=== PATIENT | female | born 1970 | race Caucasian/White ===

== ENCOUNTER 2023-12-15 06:57 | Outpatient (OUT) | payer SELFPAY ==
--- NOTE | 2023-12-15 | XR_ITS ---
The [address] [address] Patient Name: CARLOS CISNEROS MRN: [id number] date: 1970 Sex: F Assigned Patient Location: [facility] Current Patient Location: [facility] Accession/Order Number: [id number] Exam Date: 12/15/2023 07:10 Report Date: 12/17/2023 12:58 At the request of: DINO COLLAZO Procedure: XR knee RT 2V PROCEDURE: XR knee RT 2V HISTORY: Rt Knee Pain M25.561 COMPARISON: None. FINDINGS: BONES:Tiny periarticular degenerative osteophytes. No significant joint space narrowing or articular surface irregularity. No fracture, dislocation, or bone lesion. SOFT TISSUES:No visible soft tissue swelling. EFFUSION:None visible. OTHER: Negative. XR/XR knee RT 2V IMPRESSION: 1. No appreciable acute abnormality. 2. Minimal early degenerative changes. Electronically authenticated by: JORDAN ROCA Date: 12/17/2023 12:58
== END 2023-12-15 06:58 | disposition home or self-care (01) ==
LOC: RAD 07:02
PROVIDERS: PCP Family Medicine; Visit Provider Family Medicine
DX: M25.561 Pain in right knee (principal)
CPT/HCPCS: 73560

== ENCOUNTER 2025-05-11 07:49 | Outpatient (OUT) | payer BC, SELFPAY ==
--- OUTSIDE RECORDS SUMMARY | 2024-07-30 06:58 | XMS_ITS | Continuity of Care Document ---
Author Organization [facility] Address [address] [place] [id number] Phone Care Team Providers Care Computer Systems Designer Name Role Phone Sanya KILPATRICK, Jeimy Unavailable Unavailable Allergies, Adverse Reactions, Alerts Substance Reaction Status Criticality No Known Allergies Active No Inform ation Medications Medication Instructions Dosage Effective Dates (start - stop) Status Comments Multi Complete with Iron 18 mg-400 mcg tablet take 1 tablet by oral route every day with food 1.00 tablet - Active Procedures Procedure Date TB Read TB INTRADERMAL TEST PREVENTIVE NEW AGE 40-64 Bp scrn perf rec interval DIAST BP < 80 MM HG SYST BP < 130 MM HG TOBACCO NON-USER ROUTINE VENIPUNCTURE TB INTRADERMAL TEST ROUTINE VENIPUNCTURE Advance Directives Directive Yes / No Effective Date File Name No Information Encounters Encounter Description Practice Location Reason(s) For Visit Diagnoses Date Provider Providers Copied on Encounter [facility], [address] [place] [address], [id number] , [place] tel:+ [phone] [facility] No Information Sanya Munson. [address] [place] [address], [id number] , [place]. tel:[phone] [facility], [address] [place] [address], [id number] , tel:+ [phone] [facility] Encounter for screening colonoscopyScreening for cervical cancerEncounter for gynecological examination (general) (routine) without abnormal findingsEncounter for other screening for cancer of breast 4 Sanya Munson. [address], [place], [id number] , [place]. tel: [phone] [facility], [address] [place] [address], [id number] , [place] tel: [phone] [facility] No Information 4 Mansi Agustin. [address], [place], [id number] , [place]. tel: [phone] [facility], [address] [place] [address], [id number] , [place] tel: [phone] [facility] Encounter for screening for respiratory tuberculosis 4 Mansi Agustin. [address], [place], [id number] , [place]. tel: [phone] PREVENTIVE NEW AGE 40-64 [facility], [address] [place] [address], [id number] , [place] tel: [phone] [facility] pillar exam (chief complaint) Screening for metabolic disorderScreening for cardiovascular conditionAnnual physical examBody mass index [BMI] 27.0-27.9, adult 4 Sanya Munson. [address], [place], [id number] , [place]. tel: [phone] [facility], [address] [place] [address], [id number] , [place] tel: [phone] [facility] Pre-employ ment (chief complaint) Lab Draw (chief complaint) Encounter for antibody response examinationEncounter for screening for respiratory tuberculosis 3 Mansi Agustin. [address], [place], [id number] , [place]. tel: [phone] Family History Family Member Type Diagnosis Age At Onset No Information Immunizations Vaccine Date Status Comments influenza, injectable, quadr ivalent, preservative free administered Source: Other Regist ry COVID-19, mRNA, LNP-S, PF, 5 0 mcg/0.5 mL administered Source: Other Regist ry MMR administered Source: Other R egistry varicella administered Source: Other R egistry varicella administered Source: Other R egistry influenza, injectable, quadr ivalent, preservative free administered Source: Other Regist ry Tdap administered Source: Other R egistry MMR administered Source: Other R egistry COVID-19, mRNA, LNP-S, PF, 3 0 mcg/0.3 mL dose administered Source: Other Regist ry Hep A, adult administered Source: Other R egistry COVID-19, mRNA, LNP-S, PF, 3 0 mcg/0.3 mL dose administered Source: Other Regist ry Hep A, adult administered Source: Other R egistry influenza, seasonal, intrade rmal, preservative free administered Source: Other Regist ry Hep B, adult administered Source: Other R egistry Hep B, adult administered Source: Other R egistry Hep B, adult administered Source: Other R egistry Payers Payer name Insurance type Covered green party ID Authoriza tion(s) No Information Social History Type Description Quantity Date Captured Comments Alcohol Use Details Unknown Caffeine Use Details Unknown Tobacco Use Status No Information Smoking Status No Information Sex Female Sexual Orientation Straight or heterosexual Gender Identity Female Chief Complaint And Reason For Visit No Information Reason For Referral Reason For Referral No Information Plan Of Treatment Date Type Action Status Goal PRAPARE ASSESSMENT. Due on due Goal Lipid panel. Due on 029 due Goal Zoster vaccine (). Due on due Goal Tdap due Goal Mammogram. Due on 9 due Goal Depression screening. Due on due Goal Hepatitis C screening. Due o n due Goal Unhealthy drug use screening . Due on due Goal Tdap Vaccine. Due on 2030 due Goal HPV. Due on due Goal Influenza vaccine. Due on due Goal Colonoscopy. Due on due Goal Tdap due Goal PRAPARE ASSESSMENT. Due on due Goal HPV. Due on due Goal Unhealthy drug use screening . Due on due Goal Tdap Vaccine. Due on 2030 due Goal Mammogram. Due on due Goal Depression screening. Due on due Goal Lipid panel. Due on due Goal Zoster vaccine (). Due on due Goal Influenza vaccine. Due on due Goal Colonoscopy. Due on due Goal Hepatitis C screening. Due o n due Goal HPV. Due on due Goal Tdap Vaccine. Due on 2030 due Goal Mammogram. Due on due Goal Zoster vaccine (). Due on due Goal Lipid panel. Due on due Goal FIT. Due on due Goal CT-Colonography. Due on due Goal Unhealthy drug use screening . Due on due Goal Depression screening. Due on due Goal Tdap due Goal Colonoscopy. Due on due Goal Hepatitis C screening. Due o n due Goal FOBT. Due on due Goal FIT-DNA. Due on due Goal PRAPARE ASSESSMENT. Due on due Goal Influenza vaccine. Due on Ks due Goal HPV. Due on due Goal Hepatitis C screening. Due o n due Goal CT-Colonography. Due on due Goal PRAPARE ASSESSMENT. Due on due Goal Lipid panel. Due on due Goal Depression screening. Due on due Goal FIT. Due on due Goal Tdap Vaccine. Due on 2030 due Goal FOBT. Due on due Goal Tdap due Goal Influenza vaccine. Due on due Goal Mammogram. Due on due Goal Zoster vaccine (1st). Due on due Goal Colonoscopy. Due on due Goal FIT-DNA. Due on due Goal Unhealthy drug use screening . Due on due Goal HPV. Due on due Goal Colonoscopy. Due on due Goal CT-Colonography. Due on due Goal PRAPARE ASSESSMENT. Due on M due Goal Influenza vaccine. Due on Ma due Goal FIT-DNA. Due on due Goal Zoster vaccine (). Due on due Goal Mammogram. Due on due Goal Depression screening. Due on due Goal FIT. Due on due Goal Lipid panel. Due on due Goal Unhealthy drug use screening . Due on due Goal Hepatitis C screening. Due o n due Goal FOBT. Due on due Goal Tdap Vaccine. Due on 2030 due Goal Tdap due Goal Dietary management education , guidance, and counseling completed Goal Lipid panel. Due on due Goal PRAPARE ASSESSMENT. Due on O due Goal Colonoscopy. Due on due Goal HPV. Due on due Goal Hep A. Due on du e Goal FIT. Due on due Goal Tdap Vaccine. Due on 2022 due Goal FOBT. Due on due Goal Influenza vaccine. Due on Oc due Goal Unhealthy drug use screening . Due on due Goal Zoster vaccine (1st). Due on due Goal Mammogram. Due on 3 due Goal Tdap. Due on due Goal CT-Colonography. Due on due Goal Depression screening. Due on due Goal Hepatitis C screening. Due o n due Goal FIT-DNA. Due on due Referral Ordered: MAMMOGRAM, SCREENING [id number] Ordered: COLONOSCOPY AND BIOPSY ordered History Of Present Illness Encounter Date Complaint History Of Prese nt Illness pillar exam Patient here for pillars exam for [employer] health insurance. Labs obtained from left anticub after one attempt. PCP is Dr. Gomez. Just getting wellness done here. Nancy Ibarra.Patient states she is overall healthy. She sees a PCP yearly. She reports she takes daily multivitamins. Patient reports no major medical history. Vision: Last visit 2 years agoDentist: Reports regular visits 2x/yearMammogram: Last done 3 years agoPap: Done last yearColonoscopy: Done 2 years agoNon smoker and daily caffeine. 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 Denies any other concerns.//Vladimir MORENO. Lab Draw TB laboratory wo rk and Hepatitis B titer drawn successfully x1 attempt RAC. Patient tolerated well. 2x2 and bandage applied.//Vladimir MORENO. Functional Status Date Functional Assessmen t No Information Instructions Date Instruction Additional Infor bradford Recommend:annual phy sical exams, sooner with concerns or problems- annual vision exam- Wears glasses, recommend schedule annual exambiannual dental exams-UTDannual womens health exam, mammogram beginning age 40- UTDcolon cancer screening beginning age 50- UTD Related to Annual physical exam Dietary management e ducation, guidance, and counseling Related to Body mass index [BMI] 27.0-27.9, adult Giving encouragement to exercise Related to Body mass index [BMI] 27.0-27.9, adult Assessments Type Assessment Date No Information Patient Care Teams Name Effective Dates (start - stop) Status Members No Information
--- OUTSIDE RECORDS SUMMARY | 2025-05-08 04:15 | XMS_ITS ---
Author Organization The [facility] in [place] Address [address] [place] [address] Care Team Providers Care University Relations Recruiter Name Role Phone Jaren Gomez Primary Care Provider Allergies No Known Allergies REASON FOR VISIT Presents to office alone for yearly wellness, Has been having pain in tailbone for the past severalmonths. Denies any injuries Medications Medication SIG (Take, Route, Frequency, Duration) Notes Start Date End Date Status Diclofenac Sodium 75 MG 1 tablet as needed Orall y Twice a day 4Active Social History Tobacco Use: Social History Observation Description Date Details (start date - stop date) Never Smoker NA - NA Tobacco Control (Standard) Question Answer Notes Tobacco use: Nonsmoker AUDIT-C (Standard) Question Answer Notes Did you have a drink containing alcohol in the p ast year? Yes How often did you have six or more drinks on one occasion in the past year?Never (0 point)How many drinks did you have on a typical day when you were drinking in the past year?3 or 4 drinks (1 point)How often did you have a drink containing alcohol in the past year?2 to 4 times a month (2 points)[id number] Positive Problems Problem Type SNOMED Code ICD Code Onset Dates Problem Status W/U Status Risk Notes Problem Well adult (936030313) Well adult (Z00.00 ) Activeconfirmed Vital Signs Weight 136.8 lbs 05/08/2025 Height 65 in 05/08/2025 Blood pressure systolic 100 mm Hg 05/08/20 25 Blood pressure diastolic 58 mm Hg 025 BMI 22.76 kg/m2 05/08/2025 Encounters Encounter Location Date Provider Diagnosis [facility] [address] [address] 05/08/2025 Jaren Gomez Well adult Z00.0 0 Assessments Encounter Date Diagnosis (ICD Code) Assessment Notes Treatment Notes Treatment Clinical Notes Section Notes 05/08/2025 Well adult (ICD-10 - Z00.00) Plan Of Treatment Medication Medication Name Sig Start Date Stop Date Notes Diclofenac Sodium 75 MG 1 tablet as needed Orally Twic e a day 12/03/2023 Pending Test Test Name Order Date HEMOGLOBIN A1C (GLYCO) 05/08/2025 IRON, TOTAL 05/08/2025 LIPID PANEL (CHOL/TRIG/HDL/LDL) 05/08/20 25 XR LSPINE MIN 4 VIEWS 05/08/2025 THYROID PANEL (T4/TSH/FREE T3) 5 MM screening mammo BI 05/08/2025 XR sacrum coccyx min 2V 05/08/2025 CMP (COMP MET SEALS) w/eGFR CKD-EPI 2024 CBC WITH DIFF 05/08/2025 Progress Notes * Pat GOMEZOB:1970 ( 54 yo F)Acc No.[id number]:05/08/2025 UNLOCKED PROGRESS NOTE Progress Note Patient: Alicia FIELDS :?Rehan Curielcarolyn ([facility]), MDDOB:1970???Age: 54 Y???Sex:FemaleDate:05/08/2025Phone:[phone]:[address] [place], [id number] In:09:00 AM ESTCheck Out:09:37 AM EST Subjective: * Chief Complaints: * 1 . Presents to office alone for yearly wellness. 2. Has been having pain in tailbone for the past several months. Denies any injuries. * HPI: ???General:? no injury - just pain in tailbone doesnt hurt to push - more with sitting. * ROS: ???EENT:?hearing changes?denies.?visual changes?denies. non-healing mouth sores?denies.?swollen glands or neck lumps?denies.?hoarseness?denies.?sore throat?denies.?difficulty swallowing?denies.?nose bleeds?denies.?nasal congestion?denies.?ear ache?denies.?ear discharge denies.?ringing in ears?denies.?light sensitivity?denies.?eye pain?denies.?blurring?denies.?eye irritation?denies.?double vision?denies. vision loss?denies.?General/Constitutional:?Sweats:?Denies.?Fatigue?denies.?Sleep proble ms?denies.?Anorexia?denies.?Malaise?denies.?Weight loss?denies. Fatigue or Weakness?denies.?Fever or Chills?denies.?Cardiovascular:?Shortness of Breath w/lying flat?denies.?Lightheadedne ss/dizziness?denies.?Chest tightness/ heavy pressure?denies.?Swelling of legs, a nkles, or feet?denies.?Waking up with shortness of breath?denies.?Chest pain&#16 0;denies.?Palpitations?denies.?Weight gain?denies.?Respiratory:?Chronic or frequent cough?denies.?Coughing up blood&#1 60;denies.?Difficulty breathing?denies.?Productive cough?denies.?Snoring&#1 60;denies.?Shortness of breath that awakens from sleep (PND)?denies.?Chest pain? denies.?Sputum production?denies.?Wheezing?denies.?Musculoskeletal:?Joint pain?denies.?Joint Fluid?denies.?Backpain?denies.?Knee pain?denies.?Neck pain?denies.?Joint Stiffness?denies.?Muscle cramps?denies.?Weakness of muscles?denies.?Arthritis?denies.?Muscle aches?denies.?Pain in shoulder(s)?denies.?Swollen joints?denies.? * Medical History: C losed head injury, Panic attacks, Abnormal pap, Syncope. * Surgical History: r ight rotator cuff , colorectal screen 12/28/21 . * Family History: F ather: , diagnosed with Hypertension. M other: . B rother(s): alive, diagnosed with Hypertension. S ister(s): alive, goiter. 1 brother(s) , 1 sister(s) . 2 son(s) , 1 daughter(s) - healthy. . * Social History: ???Tobacco Use:?Tobacco Control (Standard)?Tobacco use:?Nonsmoker ???Drug/Alcohol:?AUDIT-C (Standard)?Did you have a drink containing alcohol in the past year??Yes ?How often did you have six or more drinks on one occasion in the past year??Never (0 point) ?How many drinks did you have on a typical daywhen you were drinking in the past year??3 or 4 drinks (1 point) ?How often did you have a drink containing alcohol in the past year??2 to 4 times a month (2 points) ?Points?3 ?Interpretation?Positive * Medications: T aking Diclofenac Sodium 75 MG Tablet Delayed Release 1 tablet as needed Orally Twice a day , Discontinued Azithromycin 250 MG Tablet 2 tabs today then 1 tab Orally daily , Discontinued predniSONE 20 MG Tablet 2 tablets Orally Once a day , Discontinued Tamiflu(Oseltamivir Phosphate) 75 MG Capsule 1 capsule Orally Twice a day , Medication List reviewed and reconciled with the patient * Allergies: N .K.D.A. Objective: * Vitals: W t:136.8lbs, Ht: 65 in, BP:100/58mm Hg, BMI:22.76Index, Ht-cm: 165.1 cm, Wt-k.05 kg. * Examination: ???Physical Exam: ?GENERAL:?well developed, well nourished, in no acute distress.?HEAD:?normocephalic/atraumatic.?EYES:?pupils equal, round and reactive to light, conjunctivae and sclerae normal.?EARS:?no deformity or lesion of external ear, canals and TM appear normal bilaterally, TM's intact, not inflamed with normal light reflex, hearing grossly normal to conversational speech.?NOSE:?no deformity, discharge, inflammation, or lesions. ?MOUTH:?mucous membranes moist, normal oropharynx and posterior pharynx without lesions or exudates, tongue normal, dentition normal.?NECK:?neck supple, no masses or palpable cervical nodes, trachea midline, thyroid without nodules, masses, tenderness, or enlargement.?CHEST:?no chest wall deformity, no chest wall tenderness. ?LUNGS:?normal respiratory effort and clear to auscultation, no wheezes, rales, or rhonchi, good air exchange.?CARDIO:?regular rate and rhythm, normal S1 and S2, nor murmur, rub, or gallop.?PULSES:?normal capillary refill.?ABDOMEN:?soft, non-distended, non-tender, no masses.?MUSCULOSKELETAL:?no deformity or scoliosis noted, normal range of motion, joints normal, no erythema, edema, effusion, or ecchymosis.?EXTREMITY:?no clubbing, cyanosis, edema, or deformity withnormal ROM in both upper and lower bilateral extremities.?NEUROLOGIC:?grossly normal.?SKIN:?no rashes, ulcerations, or suspicious lesions.?LYMPH NODES:?no cervical adenopathy, nodes normal.?MENTAL STATUS:?alert and oriented x3, normal mood and affect.? Assessment: * Assessment: 1.?Well adult - Z00.00 (Primary)??? Plan: * Treatment: Refill Diclofenac Sodium Tablet Delayed Release, 75 MG, 1 tablet as needed, Orally, Twice a day, 60, Refills 11.?LAB: HEMOGLOBIN A1C (GLYCO) ?LAB: IRON, TOTAL ?LAB: LIPID PANEL (CHOL/TRIG/HDL/LDL) ?LAB: THYROID PANEL (T4/TSH/FREE T3) ?LAB: CMP (COMP MET SEALS) w/eGFR CKD-EPI ?LAB: CBC WITH DIFF ?Imaging: XR LSPINE MIN 4 VIEWS ?Imaging: MM screening mammo BI ?Imaging: XR sacrum coccyx min 2V * * Electronic signature of Jaren Gomez MD, [id number] on 05/11/2025 at 07:55 AM EST Sign off status: PendingVisit Status:?CHK (Check Out) * Provider: Marquise Gomez ([facility])MD Date: 07/08/2024 Generated for Printing/Faxing/eTransmitting on:?05/11/2025 07:55 AM EST History and Physical Notes * HPI (History of Present Illness) CategorySub-CategoryDetailNotesCategory NotesGeneral no injury - just pain in tailbone doesnt hurt to push - more with sitting Examination CategorySub-CategoryDetailNotesCategory NotesPhysical ExamGENERAL:well developed, well nourished, in no acute distressHEAD:normocephalic/atraumatic EYES:pupils equal, round and reactive to light, conjunctivae and sclerae normal EARS:no deformity or lesion of external ear, canals and TM appear normal bilaterally, TM's intact, not inflamed with normal light reflex, hearing grossly normal to conversational speechNOSE:no deformity, discharge, inflammation, or lesionsMOUTH:mucous membranes moist, normal oropharynx and posterior pharynx without lesions or exudates, tonguenormal, dentition normalNECK:neck supple, no masses or palpable cervical nodes, trachea midline, thyroid without nodules, masses, tenderness, or enlargementCHEST:no chest wall deformity, no chest wall tendernessLUNGS:normal respiratory effort and clear to auscultation, no wheezes, rales, or rhonchi, good air exchangeCARDIO:regular rate and rhythm, normal S1 and S2, nor murmur, rub, or gallopPULSES:normal capillary refillABDOMEN:soft, non-distended, non-tender, no massesRECTAL:MUSCULOSKELETAL:no deformity or scoliosis noted, normal range of motion, joints normal, no erythema, edema, effusion, or ecchymosisEXTREMITY:no clubbing, cyanosis, edema, or deformity with normal ROM in both upper and lower bilateral extremitiesNEUROLOGIC:grossly normalSKIN:no rashes, ulcerations, or suspicious lesionsLYMPH NODES:no cervical adenopathy, nodes normalMENTAL STATUS:alert and oriented x3, normal mood and affect
--- OUTSIDE RECORDS SUMMARY | 2025-05-11 07:55 | XMS_ITS | CCD ---
Author Organization [facility] Care Team Providers Care Operations Lead Name Role Phone Dino Gomez Primary Care Provider [phone] DONTAE ESPAÑA Attending Unavailable DINO GOMEZ Primary Care Unavailable Lillian Contreras Unavailable VALE, DR SUN Primary Care Unavailable PASTOR KLINE Admitting Unavailable PASTOR KLINE Attending Unavailable LILLIAN GARCIA Consulting Unavailable MARK SWAN Consulting Unavailable PASTOR KLINE Consulting Unavailable NILL, DR FLORES Admitting Unavailable NILL, DR FLORES Attending Unavailable VALE, DR SUN Primary Care Unavailable NILL, DR FLORES Admitting Unavailable NILL, DR FLORES Attending Unavailable HOY, DR SUN Primary Care Unavailable NILL, DR FLORES Admitting Unavailable NILL, DR FLORES Attending Unavailable VALE, DR SUN Primary Care Unavailable NILL, DR FLORES Consulting Unavailable AGUBOSIM, RERE Consulting Unavailable HAIR, DOMINICK Consulting Unavailable VALE, DR SUN Admitting Unavailable VALE, DR SUN Attending Unavailable VALE, DR SUN Primary Care Unavailable VALE, DR SUN Consulting Unavailable ZIEBER, DR JORDAN [place] Consulting Unavailable VALE, DR SUN Admitting Unavailable VALE, DR SUN Attending Unavailable VALE, DR SUN Primary Care Unavailable VALE, DR SUN Consulting Unavailable NANCY JONES Admitting Unavailable NANCY JONES Attending Unavailable VALE, DR SUN Primary Care Unavailable NANCY JONES Consulting Unavailable MD Dino Gomez Primary Care Provider [phone] DO Holden Akins Attending Provider Holden Akins Attending Unavailable Holden Akins Admitting Unavailable Dino Gomez Primary Care Unavailable DEANN GUNN Attending Unavailable DEANN GUNN Referring Unavailable THALIA SALINAS Attending Unavailable Medications Current Medications MedicationDrug Class(es)DatesSig (Normalized)Sig (Original)Acetaminophen (5 sources)Tylenol ActiveBiotin (1 source)Start: 19-69-1474bgxn 1 capsule by mouth once dailybiotin Active 1 CAP PO Daily November 05, 2023 12:00amcephalexin 500 mg oral capsule (3 sources)Cephalosporin AntibacterialStart: 69-85-1923lpdf 1 capsule by mouth every eight hoursCephalexin 500 MG 1 capsule Orally every 8 hrs for 2 days May, ActiveCholecalciferol (1 source)Vitamin DStart: 65-83-4886kfcs 1 capsule by mouth once daily cholecalciferol (vitamin D3) Active 1 CAP PO Daily November 05, 2023 12:00am lidocaine 0.04 mg/mg medicated patch (1 source)Antiarrhythmic, Amide Local AnestheticStart: 89-96-4787htffquegx 4 % external patch 1 patch Completed/Discontinued Medications MedicationDrug Class(es)DatesSig (Normalized)Sig (Original)acetaminophen 325 mg / oxyCODONE hydrochloride 5 mg oral tablet (5 sources)Opioid AgonistStart: 16-67-1450ctrt 1 tablet by mouth every four hours as needed for painPercocet 5-325 MG 1 tablet as needed for pain Orally up to every 4 hrs for 5 days May, Not-Takingibuprofen 200 mg oral tablet (2 sources)Nonsteroidal Anti-inflammatory DrugStart: 04-25-2021 End: 43-80-1508tgix 1 tablet by mouth every four to six hoursIbuprofen (Advil) 200 mg Tablet Discontinued 200 MG PO EVERY 4-6 HOURS April 25, 2021 12:00am November 05, 2023 1:21pm instructed to stop 7 days before surgery; does not use with aleve.1 ml ketorolac tromethamine 15 mg/ml cartridge (2 sources)Nonsteroidal Anti-inflammatory Drug, Cyclooxygenase InhibitorStart: 11-22-2019 End: 83-06-9243hfcmsmxim (TORADOL) injection 15 mg1 ml LORazepam 2 mg/ml injection (1 source)BenzodiazepineStart: 11-22-2019 End: 00-91-5561WEHnadotu (ATIVAN) injection 0.5 mg1 ml morphine sulfate 10 mg/ml injection (1 source)Opioid AgonistStart: 11-22-2019 End: 96-74-9293nguabiym injection 6 mgnaproxen sodium 220 mg oral tablet (2 sources)Nonsteroidal Anti-inflammatory DrugStart: 04-25-2021 End: 97-38-1921Gcgdyrxd Sodium (Aleve) 220 mg Tablet Discontinued 220 MG PO Twice daily April 25, 2021 12:00amMa2023 1:21pm Instructed to stop 7 days prior to surgery. Does not take with ibuprofen.2 ml ondansetron 2 mg/ml injection (2 sources)Serotonin-3 Receptor AntagonistStart: 11-22-2019 End: 44-06-3961qitpmuuelow (ZOFRAN) injection 4 mg50 ml sodium chloride 9 mg/ml injection (1 source)Start: 11-22-2019 End: .9 % sodium chloride bolus Problems Active Problems Problem ClassificationProblemDateDocumented DateEpisodic/ChronicAnxiety disorders (1 source)Anxiety disorder, unspecified; Translations: [ANXIETY DISORDER UNSPECIFIED]Onset: 62-48-7248MijtnvfYjzv; stupor; and brain damage (1 source)Daytime somnolence; Translations: [Somnolence]01-39-8894Nlhinzha Epilepsy; convulsions (1 source)Epilepsy, unspecified, not intractable, without status epilepticus; Translations: [EPILEPSY UNS NOTINTRACT W/O SE]Onset: 77-19-8547IauasjlWgbal screening for suspected conditions (not mental disorders or infectious disease) (8 sources)Encounter for screening for malignant neoplasm of cervix; Translations: [Encounter for screening for malignant neoplasm of colon]Onset: 84-66-1216SelffjiqZisfvcjqvfkd (1 source)Encounter for immunization; Translations: [Encounter for immunization] Onset: 04-26-2023 Past or Other Problems Problem ClassificationProblemDateDocumented DateEpisodic/ChronicAbdominal pain (9 sources)Flank pain; Translations: [Epigastric pain]Onset: 88-59-9032Bibtxkoo Biliary tract disease (2 sources)Calculus of gallbladder without cholecystitis without obstruction; Translations: [CALCU GB W/O CHOLECYST W/O OBST]Onset: 07-37-5852UxrsdxyaCswnqs and vomiting (1 source)Nausea; Translations: [NAUSEA]Onset: 14-55-8165RgisdboxJtozu connective tissue disease (5 sources)Supraspinatus tear; Translations: [Unspecified rotator cuff tear or rupture of right shoulder, not specified as traumatic]EpisodicOther connective tissue disease (3 sources)Unspecified rotator cuff tear or rupture of right shoulder, not specified as traumatic; Translations: [Tear of right supraspinatus tendon M75.101]Onset: 04-28-2021 Resolved: 39-88-8151OcbdbxprBiypt non-traumatic joint disorders (1 source)Pain in right shoulder; Translations: [Acute pain of right shoulder M25.511]Onset: 04-28-2021 Resolved: 24-88-9330HorjbwuzHxajghwb codes; unclassified (3 sources)Other specified postprocedural statesOnset: 05-02-2021 Resolved: 84-03-3213YelhyhknLtlzmpk tract infections (4 sources)Urinary tract infection, site not specified; Translations: [UTI SITE NOT SPECIFIED]Onset: 38-06-1896Nwltinqi Results Test NameValueInterpretationReference RangeFacilityReminderson 11-03-2024 RemindersReminders From: Jeimy Russell MA To: N - Clinical; Sent: 11/03/2024 10:11:46 EDT Show up: 11/27/2026 10:11:00 EDT Subject: Colonoscopy recall 5 years Reminder/Recall Last colonoscopy: 12/28/2021 Repeat: 5 years Reason: Family hx of colonoscopy- Brother this is a change in hx since last colonoscopyNormalFisher [facility] - Chemistry and Chemistry - challengeon 86-90-1788Qmihhayrzwb [Mass/Vol]190 mg/dLRegency Hospital Cleveland WestCholesterol in HDL [Mass/Vol]56 mg/dLRegency Hospital Cleveland WestCholesterol in LDL [Mass/Vol] 113 mg/dLRegency Hospital Cleveland WestTriglyceride [Mass/Vol]120 mg/dL [facility] WestAlbumin [Mass/Vol]4.5 g/dLRegency Hospital Cleveland WestALP [Catalytic activity/Vol]92 U/[facility]ALT [Catalytic activity/Vol]22 U/[facility] HospitalAST [Catalytic activity/Vol]15 U/[facility] HospitalBilirubin [Mass/Vol]0.7 mg/dLRegency Hospital Cleveland WestCalcium [Mass/Vol]9.7 mg/dL [facility] WestChloride [Moles/Vol]102 mmol/[facility] HospitalCO2 [Moles/Vol]28 mmol/[facility] Creatinine [Mass/Vol]0.83 mg/dLRegency Hospital Cleveland WestGlucose [Mass/Vol]95 mg/dLRegency Hospital Cleveland WestPotassium [Moles/Vol]4.9 mmol/[facility] HospitalProtein [Mass/Vol]7.1 g/dLRegional Medical Centerodium [Moles/Vol]141 mmol/[facility] HospitalUrea nitrogen [Mass/Vol]13 mg/dLRegency Hospital Cleveland WestFree T4 [Mass/Vol]1.15 ng/dLRegency Hospital Cleveland WestLaboratory - Hematology and Cell countson 05-07-0183EnB0d (Bld) [Mass fraction]5.4 %[facility] Cleveland WestErythrocyte distribution width (RBC) [Ratio]18.7 %[facility] WestHematocrit (Bld) [Volume fraction]40.6 %[facility] WestHemoglobin (Bld) [Mass/Vol]12.0 g/dLRegency Hospital Cleveland WestMCH (RBC) [Entitic mass]17.7 pgFSalem Regional Medical Center MCHC (RBC) [Mass/Vol]29.6 g/dLRegency Hospital Cleveland WestMCV (RBC) [Entitic vol]60 fLRegency Hospital Cleveland WestPlatelets (Bld) [#/Vol]401 10*3/[facility] HospitalRBC (Bld) [#/Vol]6.79 10*6/[facility] HospitalWBC (Bld) [#/Vol]7.3 10*3/[facility] HospitalNo Panel Informationon 66-88-0391FTFJ Upxpyiwbrmd21 mg/dLRegency Hospital Cleveland WestEstimated GFR (Non- Zaszsbmk74 mL/minRegency Hospital Cleveland WestThyroid Stimulating Hormone 3rd Gen0.81[facility] WestPAP ACOG PANEL 2: 30 to 65on 07-01-2022..NormalThe [facility]tering Memorial Hospitalment on above:Result Comment: Performed at: WBPerformed By: #### [id number] #### [facility] [address] [address] [address] Brielle Beach Gdln ACOG Wksaaip63-07AlzgodAfnThe University of Toledo Medical CenterComment on above:Performed By: #### [id number] #### [facility] [address] [address] [address] Brielle HillDIAGNOSIS:CommentShelby Memorial Hospital on above: Result Comment: NEGATIVE FOR INTRAEPITHELIAL LESION OR MALIGNANCY. Performed at: WBPerformed By: #### [id number] #### [facility] [address] [place] [address] Dr. Brielle HillHPV AptimaNegativeNormalNegativeThe [facility] & [facility] HospitalComselect specialty hospital-[facility] on above:Result Comment: This nucleic acid amplification test detects fourteen high-risk HPV types (16,18,31,33,35,39,45,51,52,56,58,59,66,68) without differentiation. Performed at: =GPerformed By: #### [id number] #### [facility] [address] [place] [address] Dr. Brielle HillHPEugenia Genotype ReflexCommentShelby Memorial Hospital on above:Result Comment: Criteria not met, HPV Genotype not performed. Performed at: WBPerformed By: #### [id number] #### [facility] [address] [place] [address] Dr. Brielle HillMethodology:CommentShelby Memorial Hospital on above: Result Comment: This liquid based ThinPrep(R) pap test was screened with the use of an image guided system. Performed at: WBPerformed By: #### [id number] #### [facility] [address] [place] [address] Dr. Brielle HillNote:CommentShelby Memorial Hospital on above:Result Comment: The Pap smear is a screening test designed to aid in the detection of premalignant and malignant conditions of the uterine cervix. It is not a diagnostic procedure and should not be used as the sole means of detecting cervical cancer. Both false-positive and false-negative reports do occur. . Performed at: WBPerformed By: #### [id number] #### [facility] [address] [place] [address] Dr. Brielle HillPerformed by:CommentShelby Memorial Hospital on above: Result Comment: Marlee Harry, Concrete Curer (ASCP) Performed at: WBPerformed By: #### [id number] #### [facility] [address] [place] [address] Dr. Brielle HillSpecimen adequacy:[facility] on above:Result Comment: Satisfactory for evaluation. No endocervical component is identified. Performed at: WBPerformed By: #### [id number] #### [facility] [address] [place] [address] Dr. Brielle HillPREG HCG QUALon 28-76-2631PCPYOPBFG, QUALNegativeNormalNEGATIVE [facility] on above:Performed By: #### PREG #### [facility] [address] [place] [address] Dr. Brielle HillNM HEPATOBILIARY SCAN W EFon 63-26-8391XW HEPATOBILIARY SCAN W EF EXAMINATION: NM HEPATOBILIARY SCAN W EF HISTORY: Right upper quadrant pain COMPARISON: Ultrasound right upper quadrant 11/09/2021 TECHNIQUE: Radionuclide hepatobiliary imaging was performed after intravenous injection of 5.0 mCi Tc-99m BLANQUITA derivative with sequential acquisitions every 1 minute for one hour. Hepatobiliary imaging with gallbladder ejection fraction analysis was then performed with sequential imaging every 1 minute for 60 minutes following ingestion of 8 ounces Ensure Plus. FINDINGS: LIVER: Normal, prompt and uniform radiotracer uptake and clearing. BILIARY DUCTS: Normal radioisotopic biliary excretion. GALLBLADDER: Normal with no evidence of cystic duct obstruction. INTESTINE: Normal with no evidence of common biliary ductal obstruction. EJECTION FRACTION: 97 % within 60 minutes. (Normal EF > 38%). OTHER: Negative. IMPRESSION: 1. Normal nuclear medicine HIDA scan. Electronically authenticated by: JORDAN ROCA Date: 2021-11-16 13:43NormalThe Chickamauga HospitalCULTURE URINEon 98-93-2531OBVDIWZ URINECulture Observations: GREATER THAN TWO ORGANISMS PRESENT. PLEASE RESUBMIT CLEAN CATCH MID-STREAM URINE IF CLINICALLY INDICATED.NormalTrinity Health System West CampusComment on above:Performed By: #### URCX #### [facility] [address] [address] [address] Brielle Gimenez RANDOM W/MICROSCOPICon 45-66-7374PRVMIBOYPEOS SEENNormalNONE SEENTrinity Health System West CampusComment on above:Performed By: #### UAMIC #### [facility] [address] [place] [address] Dr. Brielle Ko Ql (U)SMALLAbnormalNEGATIVETrinity Health System West CampusComment on above:Performed By: #### UAMIC #### [facility] [address] [address] [address] Brielle Pisano SEENNormalNONE SEENTrinity Health System West CampusComselect specialty hospital-[place] on above:Performed By: #### UAMIC #### [facility] [address] [address] [address] Brielle Wise (U)CLEARNormalCLEARTrinity Health System West CampusComselect specialty hospital-[place] on above: Performed By: #### UAMIC #### [facility] [address] [address] [address] Brielle Leigh (U)YELLOWNormalYELLOWTrinity Health System West CampusComment on above: Performed By: #### UAMIC #### [facility] [address] [address] [address] Brielle Riveraystals LM Nom (Urine sed)NONE SEENNormalNONE SEENOhioHealth Nelsonville Health Center on above:Performed By: #### UAMIC #### [facility] [address] [place] [address] Dr. Hannah ChangEpithelial cells LM Ql (Urine sed)MODERATEAbnormalNONE SEEN /RARE The [facility] HospitalComselect specialty hospital-[place] on above:Performed By: #### UAMIC #### [facility] [address] [address] [address] Brielle HillGlucose Ql (U)NegativeNormalNEGATIVETrinity Health System West CampusComment on above:Performed By: #### UAMIC #### [facility] [address] [address] [address] Brielle HillHemoglobin Ql (U)NegativeNormalNEGATIVESelect Medical [facility]ty [facility] on above:Performed By: #### UAMIC #### [facility] [address] [place] [address] Dr. Brielle HillKetones Ql (U)NegativeNormalNEGATIVETrinity Health System West CampusComment on above:Performed By: #### UAMIC #### [facility] [address] [place] [address] Dr. Brielle HillLEUKOCYTESNegativeNormalNEGATIVETrinity Health System West CampusComment on above:Performed By: #### UAMIC #### [facility] [address] [place] [address] Dr. Brielle DuongCOUSTRACEAbnormalNONE SEENTrinity Health System West CampusComment on above:Performed By: #### UAMIC #### [facility] [address] [place] [address] Dr. Brielle HillNitrite Ql (U)NegativeNormalNEGATIVETrinity Health System West CampusComment on above:Performed By: #### UAMIC #### [facility] [address] [place] [address] Dr. Brielle HillpH (U)8.5 [pH]Normal5-9The [facility] Brent[facility] HospitalComment on above: Performed By: #### UAMIC #### [facility] [address] [address] [address] Brielle HillRBCNONE SEENAbnormal0-2The [facility] HospitalComment on above: Performed By: #### UAMIC #### [facility] [address] [place] [address] Dr. Brielle HillSPEC GRAVITY1.475Yctbvl8.005-<=1.025The [facility] HospitalComment on above:Performed By: #### UAMIC #### [facility] [address] [place] [address] Dr. Brielle Gimenez PROTEINNegativeNormalNEGATIVE/ TRACETrinity Health System West Campus Comment on above:Performed By: #### UAMIC #### [facility] [address] [place] [address] Dr. Brielle Mejiabilharshil Qn (U)8 {Mica'U}/dLAbnormal0.2 - 1.0The [facility] HospitalComment on above:Performed By: #### UAMIC #### [facility] [address] [place] [address] Dr. Brielle HillWBCNONLetha SEENNormalNONE SEENTrinity Health System West CampusComment on above: Performed By: #### UAMIC #### [facility] [address] [place] [address] Dr. Brielle HillAMYLASEon 82-32-7185Jrcnwwt [Catalytic activity/Vol]46 U/LNormal 25-115The [facility] HospitalComment on above:Performed By: #### CBC #### [facility] [address] [place] [address] Dr. Brielle Sahu AUTO DIFFon 49-02-2793UFRO #0.0 103/ulNormal0.0-0.1Tr[facility] Health System West CampusComment on above:Performed By: #### CBC #### [facility] [address] [place] [address] Dr. Brielle HillBasophils/100 WBC (Bld)0.2 %Normal0.2-2.0[facility] Comment on above:Performed By: #### CBC #### [facility] [address] [place] [address] Dr. Brielle Suarez #0.1 103/ulNormal0.0-0.7The [facility] on above: Performed By: #### CBC #### [facility] [address] [place] [address] Dr. Brielle Crossosinophils/100 WBC (Bld)1.2 %Normal0.9-7.0[facility] Comment on above:Performed By: #### CBC #### [facility] [address] [place] [address] Dr. Brielle Crossrythrocyte distribution width (RBC) [Ratio]17.6 %Critically high 11.0-15.0The [facility] HospitalComment on above:Performed By: #### CBC #### [facility] [address] [place] [address] Dr. Brielle HillHematocrit (Bld) [Volume fraction]36.1 %Hcknss78.0-48.0The [facility] HospitalComment on above:Performed By: #### CBC #### [facility] [address] [place] [address] Dr. Brielle HillHemoglobin (Bld) [Mass/Vol]10.7 g/dLCritically low12.0-16.0The [facility] HospitalComment on above:Performed By: #### CBC #### [facility] [address] [place] [address] Dr. Brielle Tran #0.03 10e3/ulNormal0.00-0.03The [facility] HospitalComment on above:Performed By: #### CBC #### [facility] [address] [place] [address] Dr. Brielle Tran %0.3 %Normal0.0-0.5The [facility] HospitalComment on above: Performed By: #### CBC #### [facility] [address] [place] [address] Dr. Brielle StephensonH #4.3 103/ulCritically high1.2-3.8The [facility] Comment on above:Performed By: #### CBC #### [facility] [address] [place] [address] Dr. Brielle Chapmanmphocytes/100 WBC (Bld)38.6 %Hipgak68.5-60.0The [facility] HospitalComment on above:Performed By: #### CBC #### [facility] [address] [place] [address] DrReba Teresa DIFF REQNONormalThe [facility] HospitalComment on above: Performed By: #### CBC #### [facility] [address] [place] [address] Dr. Brielle Benz (RBC) [Entitic mass]18.4 pgCritically low26.7-34.0The [facility] HospitalComment on above:Performed By: #### CBC #### [facility] [address] [place] [address] Dr. Brielle Benz (RBC) [Mass/Vol]29.6 g/dLCritically low29.9-35.2The [facility] HospitalComment on above:Performed By: #### CBC #### [facility] [address] [place] [address] Dr. Brielle Benz (RBC) [Entitic vol]62.0 fLCritically low81.0-99.0The [facility] HospitalComment on above:Performed By: #### CBC #### [facility] [address] [place] [address] Dr. Brielle Hickman #0.7 103/ulNormal0.3-0.8The [facility] HospitalComment on above:Performed By: #### CBC #### [facility] [address] [place] [address] Dr. Brielle Boschocytes/100 WBC (Bld)6.0 %Normal1.7-12.0The [facility] Comment on above:Performed By: #### CBC #### [facility] [address] [place] [address] Dr. Brielle Solitario #5.9 103/ulNormal1.4-6.5The [facility] HospitalComment on above:Performed By: #### CBC #### [facility] [address] [place] [address] Dr. Brielle Gordonutrophils/100 WBC (Bld)53.7 %Chxoxi40.0-75.0The [facility] HospitalComment on above:Performed By: #### CBC #### [facility] [address] [place] [address] Dr. Yilan ChangPlatelet mean volume (Bld) [Entitic vol]9.5 fLNormal9.5-13.5The [facility] HospitalComment on above:Performed By: #### CBC #### [facility] [address] [place] [address] Dr. Brielle HillPLT341 103/ubHrxzib116-729Fuh [facility] HospitalComment on above: Performed By: #### CBC #### [facility] [address] [place] [address] Dr. Brielle HillRBC5.82 106/ulCritically high4.20-5.40The [facility] Comment on above:Performed By: #### CBC #### [facility] [address] [place] [address] Dr. Brielle HillWBC11.0 103/ulNormal4.0-11.0The [facility] HospitalComment on above:Performed By: #### CBC #### [facility] [address] [place] [address] Dr. Brielle HillLIPASEon 94-47-0633Ihnnkn [Catalytic activity/Vol]72.0 U/L Critically low73.0-393.0The [facility] HospitalComment on above:Performed By: #### CBC #### [facility] [address] [place] [address] Dr. Brielle HillPROF 14(COMP METB)on [id number] [Mass/Vol]3.8 g/dLNormal 3.4-5.0The [facility] Brentwood HospitalComment on above:Performed By: #### LIPA, CMP, CRISTIN, HSTROPN #### [facility] [address] [place] [address] Dr. Brielle HillAlbumin/Globulin [Mass ratio]1.2 {ratio}NormalThe [facility]tering [facility] Hospitalment on above:Performed By: #### LIPA, CMP, CRISTIN, HSTROPN #### [facility] [address] [place] [address] Dr. Brielle HillALP [Catalytic activity/Vol]82 U/CRpvfok00-047Vaf Alyce HospitalComment on above:Performed By: #### LIPA, CMP, CRISTIN, HSTROPN #### [facility] [address] [address] [address] Brielle Ferreira [Catalytic activity/Vol]30 U/JCzzyvs11-13Xzw [facility] HospitalComment on above:Performed By: #### LIPA, CMP, CRISTIN, HSTROPN #### [facility] [address] [place] [address] Dr. Brielle Garciaon gap [Moles/Vol]11.9 mmol/LNormalThe [facility] Comment on above:Performed By: #### LIPA, CMP, CRISTIN, HSTROPN #### [facility] [address] [place] [address] Dr. Brielle HillAST [Catalytic activity/Vol]42 U/LCritically qxlz23-71Zft [facility] HospitalComment on above:Performed By: #### LIPA, CMP, CRISTIN, HSTROPN #### [facility] [address] [place] [address] Dr. Brielle HillBilirubin [Mass/Vol]1.2 mg/dLCritically high0.2-1.0The [facility] HospitalComselect specialty hospital-[facility] on above:Performed By: #### LIPA, CMP, CRISTIN, HSTROPN #### [facility] [address] [place] [address] Dr. Brielle HillCalcium [Mass/Vol]8.4 mg/dLCritically low8.5-10.1The [facility] HospitalComselect specialty [facility] on above:Performed By: #### LIPA, CMP, CRISTIN, HSTROPN #### [facility] [address] [place] [address] Dr. Brielle HillChloride [Moles/Vol]104 mmol/DIbiaks21-576Trr [facility] Comment on above:Performed By: #### LIPA, CMP, CRISTIN, HSTROPN #### [facility] [address] [place] [address] Dr. Brielle HillCO2 [Moles/Vol]24.8 mmol/EIkttff37.0-32.0[facility] Comment on above:Performed By: #### LIPA, CMP, CRISTIN, HSTROPN #### [facility] [address] [address] [address] Brielle HillCreatinine [Mass/Vol]0.81 mg/dLNormal0.55-1.02[facility] West CampusComment on above:Performed By: #### LIPA, CMP, CRISTIN, HSTROPN #### [facility] [address] [address] [address] Brielle CrossGFR-AF PORTUGUESE>60Normal>=60The [facility] HospitalComment on above:Performed By: #### LIPA, CMP, CRISTIN, HSTROPN #### [facility] [address] [place] [address] Dr. Brielle CrossGFR-NON AF PORTUGUESE>60Normal>=60The [facility] HospitalComment on above:Performed By: #### LIPA, CMP, CRISTIN, HSTROPN #### [facility] [address] [place] [address] Dr. Brielle HillGlobulin (S) [Mass/Vol]3.1 g/dLNormalThe [facility] HospitalComment on above:Performed By: #### LIPA, CMP, CRISTIN, HSTROPN #### [facility] [address] [place] [address] Dr. Brielle HillGlucose [Mass/Vol]100 mg/gZEdzkva25-186MgxTrinity Health System West Campus Comment on above:Performed By: #### LIPA, CMP, CRISTIN, HSTROPN #### [facility] [address] [place] [address] Dr. Brielle HillPotassium [Moles/Vol]3.7 mmol/LNormal3.5-5.1[facility] Comment on above:Performed By: #### LIPA, CMP, CRISTIN, HSTROPN #### [facility] [address] [place] [address] Dr. Brielle HillProtein [Mass/Vol]6.9 g/dLNormal6.4-8.2[facility] Comment on above:Performed By: #### LIPA, CMP, CRISTIN, HSTROPN #### [facility] [address] [address] [address] Brielle HillSodium [Moles/Vol]137 mmol/ZWpiomw855-344Vfa [facility] Comment on above:Performed By: #### LIPA, CMP, CRISTIN, HSTROPN #### [facility] [address] [address] [address] Brielle HillUrea nitrogen [Mass/Vol]9.0 mg/dLNormal7.0-18.0The [facility] HospitalComment on above:Performed By: #### LIPA, CMP, CRISTIN, HSTROPN #### [facility] [address] [place] [address] Dr. Brielle Lynn nitrogen/Creatinine [Mass ratio]11.1 mg/mgNormalThe [facility] HospitalComment on above:Performed By: #### LIPA, CMP, CRISTIN, HSTROPN #### [facility] [address] [place] [address] Dr. Brielle Jackson, HIGH SENSITIVITYon [id number]<4.5Wpogzf0.0-51.3 [facility] on above:Result Comment: CUT-OFF POINTS HAVE BEEN ESTABLISHED BASED ON THE FOURTH UNIVERSAL DEFINITIONS OF MYOCARDIAL INFARCTION. THE UPPER REFERENCE LIMIT (URL) OF TROPONIN, DEFINED THE 99TH PERCENTILE OF cTnI DISTRIBUTION IN A REFERENCE POPULATION, HAS BEEN CONFIRMED THE DECISION THRESHOLD FOR ME DIAGNOSIS.Performed By: #### HSTROPN #### [facility] [address] [place] [address] Dr. Brielle HillHSTROP<4.9Howkjp3.0-51.3The [facility] on above: Result Comment: CUT-OFF POINTS HAVE BEEN ESTABLISHED BASED ON THE FOURTH UNIVERSAL DEFINITIONS OF MYOCARDIAL INFARCTION. THE UPPER REFERENCE LIMIT (URL) OF TROPONIN, DEFINED THE 99TH PERCENTILE OF cTnI DISTRIBUTION IN A REFERENCE POPULATION, HAS BEEN CONFIRMED THE DECISION THRESHOLD FOR ME DIAGNOSIS.Performed By: #### CBC #### [facility] [address] [place], [place] [id number] Dr. Brielle De Los Santos SINGLE QUAD RT UPPERon [id number] SINGLE QUAD RT UPPEREXAM: Right upper quadrant ultrasound: HISTORY: Nausea and vomiting with epigastric pain for a day. COMPARISON: None. TECHNIQUE: Grayscale and color flow analysis was performed. FINDINGS: The liver is normal in size and appearance. Normal blood flow characteristics are seen in the portal vessels. The visualized pancreas is normal in appearance. The gallbladder is normally distended and shows layering echogenic stones in the fundus. The common bile duct measures 3.3 mm. By report, there is a negative sonographic Chambers's sign. The right kidney is normal in size and appearance. There is no hydronephrosis. No free fluid is seen. IMPRESSION: Cholelithiasis without other convincing evidence of acute cholecystitis. Electronically authenticated by: MARK SWAN Date: 2021-11-09 15:26[facility] CenterXR ABD FLAT UP_PA Bill [id number] ABD FLAT UP_PA CHEXAM: XR ABD FLAT UP_PA CH HISTORY: NAUSEA WITH VOMITING, UNSPECIFIED COMPARISON: None. TECHNIQUE: Single view of the chest and 2 views of the abdomen. FINDINGS: Cardiomediastinal silhouette and pulmonary vascularity are within normal limits. The lungs and the costophrenic angles are clear. Moderate stool burden throughout the colon. No evidence of significant bowel dilatation. No evidence of free intraperitoneal gas. There are a few scattered nonspecific air-fluid levels present. IMPRESSION: 1. Moderate stool burden within the colon. No definite evidence of bowel obstruction or significant ileus. There are a few scattered air-fluid levels which are nonspecific. 2. No acute cardiopulmonary disease. Electronically authenticated by: LILLIAN GARCIA Date: 2021-11-09 12:46[facility] CenterCT ABDOMEN PELVIS WO CONTRASTon [id number] ABDOMEN PELVIS WO CONTRASTEXAMINATION: CT OF THE ABDOMEN AND PELVIS WITHOUT CONTRAST 11/22/2019 10:55 am TECHNIQUE: CT of the abdomen and pelvis was performed without the administration of intravenous contrast. Multiplanar reformatted images are provided for review. Dose modulation, iterative reconstruction, and/or weight based adjustment of the mA/kV was utilized to reduce the radiation dose to as low as reasonably achievable. COMPARISON: None. HISTORY: ORDERING SYSTEM PROVIDED HISTORY: flank pain TECHNOLOGIST PROVIDED HISTORY: flank pain Is the patient ?->No Right renal colic. FINDINGS: Lower Chest: The visualized portions of the lung bases are clear. Organs: Solid organs are limited without contrast. Mild steatosis of the liver. Layering gallstones. No pericholecystic fluid. The biliary tree is not dilated. Borderline splenomegaly. Normal pancreas. No adrenal lesions. Asymmetric edema of the right kidney compared with the left. No radiopaque calculi. The right ureter is not dilated. The left ureter is not dilated. GI/Bowel: Normal appendix. Small volume of stool throughout the colon. No dilated loops of small bowel. Pelvis: The uterus and adnexa are unremarkable. The bladder is underdistended. Bladder wall thickening presumably from underdistention. Cystitis or reactive change from recently passed calculus are considered. Peritoneum/Retroperitoneum: No enlarged lymph nodes by size criteria. Calcified plaquing of the aorta. Prominence of the intima of the aorta implies underlying anemia. Bones/Soft Tissues: Umbilical piercing. No focal soft tissue swelling. No evidence of fracture. Age compatible degenerative change. Disc bulges at L4-L5 and L5-S1. IMPRESSION: Minimal edema adjacent to the right kidney in absence of a radiopaque calculus. Findings imply recently passed calculus. Bladder wall thickening presumably from underdistention. Reactive changes from recently passed calculus also considered. Please correlate with urinalysis. Interpreted by: Edvin Kaur MD Signed by: Edvin Kaur MD 11/23/19 Final resultNoTrinity Health System Twin City Medical CenterCult,Urineon [id number],UrineSpecimen Description .CLEAN CATCH URINE Special Requests NOT REPORTED Culture NO SIGNIFICANT GROWTH Report Status FINAL 11/23/2019[facility]ron CampusComment on above: Performed By: #### URC #### [facility] Coco [address] [place] [address] Insole Presser: Rajan Bermudez MD [facility] [address] [place] [address] Insole Presser: Shyam Max MDBasic Metab w/rfx MGon 11-22-2019(cont.)Normal [facility] SystemComment on above:Result Comment: Average GFR for 50-59 years old: 93 mL/min/1.73sq m Chronic Kidney Disease: <60 mL/min/1.73sq m Kidney failure: <15 mL/min/1.73sq m eGFR calculated using average adult body mass. Additional eGFR calculator available at: http://www.Shhmooze/multiple_crcl_2012.htmPerformed By: #### HCG, BMPX, CDP #### [address] [place], [place] [id number] Insole Presser: Shyam Max MDAnion gap [Moles/Vol]12 mmol/LNormal9-17[facility] Health SystemComment on above:Performed By: #### HCG, BMPX, CDP #### [address] [place], [place] [id number] Insole Presser: MONROE LeiN/CRE Ovqbo52Mtzpvf0-72[facility] Comment on above:Performed By: #### HCG, BMPX, CDP #### [address] [place], [place] [address] Insole Presser: Shyam Max MDCalcium [Mass/Vol]8.9 mg/dLNormal8.6-10.4[facility] Health SystemComment on above:Performed By: #### HCG, BMPX, CDP #### [address] [place] [address] Insole Presser: ERIC Leihloride [Moles/Vol]100 mmol/VYozlqe56-756WfhdpHolzer Health SystemComment on above:Performed By: #### HCG, BMPX, CDP #### [address] [place], [place] [id number] Insole Presser: Shyam Max MDCO2 [Moles/Vol]25 mmol/MQygbat40-92Owtey [facility]iffin HospitalComment on above:Performed By: #### HCG, BMPX, CDP #### [address] [place] [address] Insole Presser: ERIC Leireatinine [Mass/Vol]0.66 mg/dLNormal0.50-0.90 [facility] HospitalComment on above:Performed By: #### HCG, BMPX, CDP #### [address] [place] [address] Insole Presser: Shyam Max MDGFR, Amer>60Normal>60MerDo[facility] Comment on above:Performed By: #### HCG, BMPX, CDP #### [address] [place] [id number] Insole Presser: Shyam Max MDGFR,non Amer>60Normal>60[facility] HospitalComment on above:Performed By: #### HCG, BMPX, CDP #### [address] [place], [facility]83 Insole Presser: Shyam Max MDGlucose [Mass/Vol]140 mg/yDInjr01-50Uqdfe [place] HospitalComment on above:Performed By: #### HCG, BMPX, CDP #### [address] [place], [facility]83 Insole Presser: JODY Leiotassium [Moles/Vol]4.1 mmol/LNormal3.7-5.3[facility] hospitaly Ama HospitalComment on above:Performed By: #### HCG, BMPX, CDP #### [address] [place] [address] Insole Presser: ARTURO Leiodium [Moles/Vol]137 mmol/OWfciis873-136Sdsnv [facility]iffin HospitalComment on above:Performed By: #### HCG, BMPX, CDP #### [address] [place], [place] [address] Insole Presser: ARTURO Leitaging:NormalMercy Ama HospitalComment on above:Result Comment: Stage 1: Some kidney damage normal GFR Stage 2: Mild kidney damage GFR 60-89 Stage 3: Moderate kidney damage GFR 30-59 Stage 4: Severe kidney damage GFR 15-29 Stage 5: Severe kidney damage GFR <15 ESRD - chronic treatment by dialysis or transplantPerformed By: #### HCG, BMPX, CDP #### [facility] [address] [place] [address] Insole Presser: Shyam Max MDUrea nitrogen [Mass/Vol]11 mg/dLNormal6-20[facility] Health SystemComment on above:Performed By: #### HCG, BMPX, CDP #### [facility] [address] [place] [address] Insole Presser: Shyam Max MDSt. Vincent'S [facility] Metabolic Panel w/ Reflex to MGon [id number] gap [Moles/Vol]12 mmol/L9 - 17 mmol/LMDiley Ridge Medical Center, KYBun/Cre Zerrf35HlcibMartins Ferry Hospital, KYCalcium [Mass/Vol]8.9 mg/dL8.6 - 10.4 mg/dLMartins Ferry Hospital, KYChloride [Moles/Vol]100 mmol/L98 - 107 mmol/[facility], [place] CO2 [Moles/Vol]25 mmol/L20 - 31 mmol/[facility] [place], KYCreatinine [Mass/Vol] 0.66 mg/dL0.5 - 0.9 mg/dLMartins Ferry Hospital, KYGFR >60>60 mL/min [facility], KYGFR Non->60>60 mL/minMartins Ferry Hospital, [place] Glucose [Mass/Vol]140 mg/mXNjoq78 - 99 mg/dLMartins Ferry Hospital, KYInterpretation and review of laboratory resultsAbnormalMartins Ferry Hospital, KYPotassium [Moles/Vol]4.1 mmol/L3.7 - 5.3 mmol/LMSumma Health Wadsworth [facility]- [place], KYSodium [Moles/Vol]137 mmol/L135 - 144 mmol/[facility]- [place], KYUrea nitrogen [Mass/Vol]11 mg/dL6 - 20 mg/dLMetrohealth Parma [facility] Center- [place], PACBC Auto Differentialon [id number] (Bld) [#/Vol]0.00 10*3/uLMetrohealth Parma Medical Center- [place], KYBasophils/100 WBC (Bld)0 %0 - 2 %[facility], KYDifferential TypeNOT REPORTEDMetrohealth [facility]- [place], KYEosinophils (Bld) [#/Vol]0.18 10*3/[facility]- [place], KYEosinophils/100 WBC (Bld)2 %1 - 4 %[facility], KYErythrocyte distribution width (RBC) [Ratio]17.8 %High11.8 - 14.4 %[facility]- [place], KYHematocrit (Bld) [Volume fraction]38.9 %36.3 - 47.1 %[facility], KYHemoglobin (Bld) [Mass/Vol]11.3 g/dLLow11.9 - 15.1 g/dLMartins Ferry Hospital, KYImmature granulocytes (Bld) [#/Vol]0 %0[facility]- [place], [place] Immature granulocytes (Bld) [#/Vol]0.00 10*3/[facility]- [place], [place] Interpretation and review of laboratory resultsAbnormalMartins Ferry Hospital, [place] Lymphocytes (Bld) [#/Vol]3.96 10*3/uLPremier Health, KYLymphocytes/100 WBC (Bld)43 %24 - 43 %[facility]- [place], KYMCH (RBC) [Entitic mass]18.0 pgLow25.2 - 33.5 pgMartins Ferry Hospital, KYMCHC (RBC) [Mass/Vol]29.0 g/dL28.4 - 34.8 g/dLMartins Ferry Hospital, KYMCV (RBC) [Entitic vol]61.8 fLLow82.6 - 102.9 fLMartins Ferry Hospital, KYMonocytes (Bld) [#/Vol]0.46 10*3/uLMetrohealth Parma Medical Center- [place], KYMonocytes/100 WBC (Bld) 5 %3 - 12 %[facility], KYMorphology Flex (Bld) [Interp]MICROCYTOSIS PRESENT [facility], JAYLENEPlatelet mean volume (Bld) [Entitic vol]9.6 fL8.1 - 13.5 fL [facility], JAYLENEPlatelets (Bld) [#/Vol]NOT REPORTEDMartins Ferry Hospital, [place] Platelets (Bld) [#/Vol]375 10*3/uLMartins Ferry Hospital, PARBC (Bld) [#/Vol]6.29 10*6/uLHigh3.95 - 5.11 m/[facility], PARBC morphology finding Nom (Bld) NOT REPORTEDMartins Ferry Hospital, PASegmented neutrophils/100 WBC (Bld)50 %36 - 65 % [facility], PASegs Absolute4.60[facility], PAWBC (Bld) [#/Vol]0.0 10*3/uL0.0 per 100 WBCMartins Ferry Hospital, PAWBC (Bld) [#/Vol]9.2 10*3/uLMartins Ferry Hospital, KYWBC MorphologyNOT REPORTEDMartins Ferry Hospital, PACBC with Diffon [id number]. Basophil0.00 k/uLNormal0.00-0.20[facility] HospitalComment on above:Performed By: #### HCG, BMPX, CDP #### [address] [place] [address] Insole Presser: Flynn Lei.Imm.Granulocyte0.00 k/uLNormal0.00-0.30[facility] HospitalComment on above:Performed By: #### HCG, BMPX, CDP #### [facility] [address] [place] [address] Insole Presser: Flynn Lei.Neutrophil (Seg)4.60 k/uLNormal1.50-8.10[facility] HospitalComment on above:Performed By: #### HCG, BMPX, CDP #### [address] [place] [id number] Insole Presser: Shyam Max MDBasophils/100 WBC (Bld)0 %Normal0-2MercUniversity Hospitals Beach[facility] Medical Center HospitalComment on above:Performed By: #### HCG, BMPX, CDP #### [facility] [address] [place], [place] [address] Insole Presser: Shyam Max MDEosinophils (Bld) [#/Vol]0.18 10*3/uLNormal 0.00-0.44[facility] HospitalComment on above:Performed By: #### HCG, BMPX, CDP #### [address] [place] [id number] Insole Presser: NIGEL Leiosinophils/100 WBC (Bld)2 %Normal1-4[facility] HospitalComment on above:Performed By: #### HCG, BMPX, CDP #### [address] [place], [place] [address] Insole Presser: Shyam Max MDImmature granulocytes (Bld) [#/Vol]0 %Normal0 [facility] SystemComment on above:Performed By: #### HCG, BMPX, CDP #### [address] [place] [id number] Insole Presser: Shyam Max MDLymphocytes (Bld) [#/Vol]3.96 10*3/uLHigh 1.10-3.70[facility] HospitalComment on above:Performed By: #### HCG, BMPX, CDP #### [address] [place], [facility]83 Insole Presser: Winnie Leimphocytes/100 WBC (Bld)43 %Asaxgb18-84Iuspf [facility]iffin HospitalComment on above:Performed By: #### HCG, BMPX, CDP #### [facility] [address] [place], [facility]83 Insole Presser: GONZALO Leionocytes (Bld) [#/Vol]0.46 10*3/uLNormal 0.10-1.20[facility] SystemComment on above:Performed By: #### HCG, BMPX, CDP #### [address] [place], [facility]83 Insole Presser: GONZALO eLionocytes/100 WBC (Bld)5 %Normal3-12[facility] SystemComment on above:Performed By: #### HCG, BMPX, CDP #### [address] [place] [address] Insole Presser: GONZALO Leiorphology Flex (Bld) [Interp]MICROCYTOSISNormal [facility] SystemComselect specialty hospital-[place] on above:Result Comment: PRESENTPerformed By: #### HCG, BMPX, CDP #### [address] [place], [place] [address] Insole Presser: Shyam Max MDNeutrophil (Seg)50 %Ppiwoj21-43Dhqoj [facility] HospitalComment on above:Performed By: #### HCG, BMPX, CDP #### [address] [place], [facility]83 Insole Presser: Shyam Max MDErythrocyte distribution width (RBC) [Ratio]17.8 %High11.8-14.4[facility] Health SystemComment on above:Performed By: #### HCG, BMPX, CDP #### [address] [place], [facility]83 Insole Presser: Shyam Max MDHematocrit (Bld) [Volume fraction]38.9 %Normal 36.3-47.1MOhioHealth Shelby HospitalComment on above:Performed By: #### HCG, BMPX, CDP #### [address] [place], [facility]83 Insole Presser: Shyam Max MDHemoglobin (Bld) [Mass/Vol]11.3 g/dLLow11.9-15.1 [facility] HospitalComment on above:Performed By: #### HCG, BMPX, CDP #### [address] [place], [facility]83 Insole Presser: LAURY Lei (RBC) [Entitic mass]18.0 pgLow25.2-33.5[facility] HospitalComment on above:Performed By: #### HCG, BMPX, CDP #### [address] [place], [place] [address] Insole Presser: LAURY LeiC (RBC) [Mass/Vol]29.0 g/kFFkyayd79.4-34.8 [facility] HospitalComment on above:Performed By: #### HCG, BMPX, CDP #### [address] [place], [facility]83 Insole Presser: DYANA Lei (RBC) [Entitic vol]61.8 fLLow82.6-102.9[facility] HospitalComment on above:Performed By: #### HCG, BMPX, CDP #### [address] [place], [facility]83 Insole Presser: Shyam Max MDNRBC Automated0.0 per 100 WBCNormal0.0[facility] HospitalComment on above:Performed By: #### HCG, BMPX, CDP #### [address] [place], [facility]83 Insole Presser: Robin Lei mean volume (Bld) [Entitic vol]9.6 fL Normal8.1-13.5[facility] HospitalComment on above:Performed By: #### HCG, BMPX, CDP #### [address] [place], [facility]83 Insole Presser: Anabel Lei (Bld) [#/Vol]375 10*3/oEDivmuz856-609 [facility] HospitalComment on above:Performed By: #### HCG, BMPX, CDP #### [facility] [address] [place] [address] Insole Presser: XI Lei (Bld) [#/Vol]6.29 10*6/uLHigh3.95-5.11[facility] [place] HospitalComment on above:Performed By: #### HCG, BMPX, CDP #### [address] [place] [address] Insole Presser: ZOILA Lei (Bld) [#/Vol]9.2 10*3/uLNormal3.5-11.3MAdena Health System HospitalComment on above:Performed By: #### HCG, BMPX, CDP #### [address] [place] [address] Insole Presser: Miguel Angel Lei PerformedNOT REPORTEDNormalMercy Ama HospitalComment on above:Performed By: #### HCG, BMPX, CDP #### [address] [place] [address] Insole Presser: Anabel Lei (Bld) [#/Vol]NOT REPORTEDNormalMercy Ama HospitalComment on above:Performed By: #### HCG, BMPX, CDP #### [address] [place] [address] Insole Presser: XI Lei morphology finding Nom (Bld)NOT REPORTED NormalAvita Health System [facility] Hospital HospitalComment on above:Performed By: #### HCG, BMPX, CDP #### [address] [place] [address] Insole Presser: ZOILA Lei MorphologyNOT REPORTEDNormalMercy Ama HospitalComment on above:Performed By: #### HCG, BMPX, CDP #### [facility] [address] [place] [address] Insole Presser: PREMA Lei Qualitative, Serumon [id number] Qual NegativeNEGATIVEOriska, KYComment on above:Specimens with hCG levels near the threshold of the test (25 mIU/mL) may give a negative or indeterminate result. In such cases, another test should be performed with a new specimen in 48-72 hours. If early is suspected clinically in this setting, correlation with quantitative serum b-hCG level is suggested. [facility] has confirmed the use of plasma for this test. This has not been cleared or approved by the U.S. Food and Drug Administration. The FDA has determined that such clearance is not necessary. HCG Screen, Blood [id number] QnNegativeNormalMount Carmel Health System Comment on above:Result Comment: Specimens with hCG levels near the threshold of the test (25 mIU/mL) may give a negative or indeterminate result. In such cases, another test should be performed with a new specimen in 48-72 hours. If early is suspected clinically in this setting, correlation with quantitative serum b-hCG level is suggested. [facility] has confirmed the use of plasma for this test. This has not been cleared or approved by the U.S. Food and Drug Administration. The FDA has determined that such clearance is not necessary.Performed By: #### HCG, BMPX, CDP #### [facility] [address] [place] [address] Insole Presser: GONZALO Leietabolic Panelon 46-13-8612PDN/1.73 sq M predicted among non-blacks MDRD (S/P/Bld) [Vol rate/Area][place], [place] Comment on above:Stage 1: Some kidney damage normal GFR Stage 2: Mild kidney damage GFR 60-89 Stage 3: Moderate kidney damage GFR 30-59 Stage 4: Severe kidney damage GFR 15-29 Stage 5: Severe kidney damage GFR <15 ESRD - chronic treatment by dialysis or transplant Average GFR for 50-59 years old: 93 mL/min/1.73sq m Chronic Kidney Disease: <60 mL/min/1.73sq m Kidney failure: <15 mL/min/1.73sq m eGFR calculated using average adult body mass. Additional eGFR calculator available at: http://www.Shhmooze/multiple_crcl_2012.htm Microscopic Urinalysison 18-14-4101Kzqzzaimu, UANOT REPORTEDNoneMeSelect Medical Specialty Hospital [facility]- [place], KYBacteria, UATRACEAbnormalNoneMeSelect Medical Specialty [facility]- [place], KYCasts UANOT REPORTED/LPF [facility] [place], KYCrystals, UANOT REPORTEDNone /[facility] [place] [facility] [place], [place] Epithelial Cells UA10 TO 20[facility] [place], KYMucus, UANOT REPORTEDNon[facility] [place], KYOther Observations UANOT REPORTEDNOT REQ.[facility], KYRBC (U) [#/Vol]0 TO 2MChildren[facility] for Rehabilitation [place], KYRenal Epithelial, UANOT REPORTED0 /[facility] [place] [facility] [place], KYTrichomonas, UANOT REPORTEDNonOhio[facility], KYWBC, UA5 TO 10 [facility], KYYeast, UANOT REPORTEDNon[facility] [place], [place]-[facility] [place], KYOtheron 70-18-1177Qtajqmaewjrcuf and review of laboratory resultsAbnormal [facility], KYUA w/Reflex Cultureon 48-85-3001Qxbvuycqiqh Acid,UrNegative NormalNEGHolzer Health SystemComment on above:Performed By: #### ZELDA KEENO #### [facility] [address] [place] [address] Insole Presser: Shyam Max MDBilirubin, SemiQt,UrNegativeNormalNEGHolzer Health SystemComment on above:Performed By: #### CHRISTIANXZELDAO #### [facility] [address] [place] [address] Insole Presser: ERIC Leissm rehab (U)YELLOWNoPike Community Hospital Comment on above:Performed By: #### CHRISTIANXALANISICAO #### [facility] [address] [place] [address] Dr. [place], [facility] Insole Presser: Shyam Max MDGlucose Ql (U)NegativeNormalNEGHolzer Health SystemComment on above:Performed By: #### UAX, UMICAO #### [facility] [address] [place] [address] Dr. [place], [place] [id number] Insole Presser: Shyam Max MDHemoglobin, Ur1+AbnormalNEGHolzer Health System Comment on above:Performed By: #### UAX, UMICAO #### [address] [place], [facility] Insole Presser: Shyam Max MDLeukocyte esterase Test strip Ql (U)TRACEAbnormal NEGHolzer Health SystemComment on above:Performed By: #### UAX, UMICAO #### [address] [place], [facility] Insole Presser: Shyam Max MDNitrite,UrNegativeNormFirelands Regional Medical Center Comment on above:Performed By: #### OSMANI UMICAO #### [address] [place], [facility] Insole Presser: Shyam Max [facility] CenterH (U)6.5 [pH]Normal5.0-9.0[facility] Comment on above:Performed By: #### OSMANI, UMICAO #### [facility] [address] [place] [address] Dr. [place], [facility] Insole Presser: JODY Leirotein Ql (U)NegativeNormalMount Carmel Health SystemComment on above:Performed By: #### UAX, UMICAO #### [facility] [address] [place], [place] [id number] Insole Presser: ARTURO Leipecific gravity (U) [Rel density]1.020Normal 1.010-1.020[facility] HospitalComment on above:Performed By: #### UAX, UMICAO #### [facility] [address] [place] [address] Insole Presser: Shyam Max MDSierra Kings HospitalalCCleveland Clinic Mentor Hospital Comment on above:Performed By: #### UAX, UMICAO #### [facility] [address] [place] [address] Insole Presser: Flory Lei,UrNormalNormalAkron Children's HospitalComment on above:Performed By: #### UAX, UMICAO #### [facility] [address] [place] [address] Insole Presser: Shyam Mxa [facility] Comment on above:Performed By: #### UAX, UMICAO #### [facility] [address] [place] [address] Insole Presser: Shyam Max MDUrinalysis Reflex to Cultureon 11-22-2019 Bilirubin UrineNegativeNEGATIVEMercy Health- [place], KYColor, UAYELLOWYELLOWMercy Health- [place], KYGlucose, UrNegativeNEGATIVEMercy Health- [place], KYKetones Ql (U) NegativeNEGATIVEMercy Health- [place], KYLeukocyte esterase Test strip Ql (U)TRACE AbnormalNEGATIVEMercy Health- [place], KYNitrite, UrineNegativeNEGATIVEMercy Health- [place], KYpH, UA6.5[facility]- [place], KYProtein (U) [Mass/Vol]NegativeNEGATIVEMercy Health- [place], KYSpecific Commerce, UA1.020[facility]- [place], KYTurbidity UACLEAR CLEARMercy Health- [place], KYUrinalysis CommentsNOT REPORTEDMercy Health- [place], [place] Urine Hgb1+AbnormalNEGATIVEMercy Health- [place], KYUrobilinogen, UrineNormalNormal [facility]- [place], KYUrinalysis,Microon 11-22-2019-----NormalMercy Ama HospitalComment on above:Performed By: #### UAX, UMICAO #### [address] [place] [address] Insole Presser: Shyam Max MDBacteria LM.HPF (Urine sed) [#/Area]TRACEAbnormal NONEMercy Ama HospitalComment on above:Performed By: #### UAX, UMICAO #### [address] [place] [address] Insole Presser: Shyam Max MDEpithelial cells LM.HPF (Urine sed) [#/Area]10 TO 55Eulvva5-14Jyylf Ama HospitalComment on above:Performed By: #### UAX, UMICAO #### [address] [place] [id number] Insole Presser: JUANY LeiBC (U) [#/Vol]0 TO 9Puznig9-9Ulopc Ama HospitalComment on above:Performed By: #### UAX, UMICAO #### [address] [place] [id number] Insole Presser: Shyam Max MDWBC (U) [#/Vol]5 TO 56Onxula0-2Dtexu Ama HospitalComment on above:Performed By: #### UAX, UMICAO #### [address] [place] [address] Insole Presser: Susan Lei sediment LM Ql (Urine sed)NOT REPORTED NormalNONEMercy Ama HospitalComment on above:Performed By: #### UAX, UMICAO #### [address] [place] [id number] Insole Presser: Yasmin Lei LM.LPF (Urine sed) [#/Area]NOT REPORTED NormalMercy Ama HospitalComment on above:Performed By: #### UAX, UMICAO #### [address] [place] [address] Insole Presser: ERIC Leirystals LM Nom (Urine sed)NOT REPORTEDNormalNONE [facility] HospitalComment on above:Performed By: #### UAX, UMICAO #### [facility] [address] [place] [address] Insole Presser: Shyam Max MDEpithelial, RenalNOT RHORANCZGnmcwf0Ucoqg Ama HospitalComment on above:Performed By: #### UAX, UMICAO #### [facility] [address] [place] [address] Insole Presser: GONZALO Leiucus StrandsNOT REPORTEDNormalNONEMey Ama HospitalComment on above:Performed By: #### UAX, UMICAO #### [facility] [address] [place] [address] Insole Presser: Shyam Max MDOther ObservationsNOT REPORTEDNormalNREQTwin City Hospitalcy Ama HospitalComment on above:Performed By: #### UAX, UMICAO #### [facility] [address] [place] [address] Insole Presser: Shyam Max MDTrichomonasNOT REPORTEDNormalNONEMey Ama HospitalComment on above:Performed By: #### UAX, UMICAO #### [facility] [address] [place] [address] Insole Presser: Shyam Max MDYeast LM Ql (Urine sed)NOT REPORTEDNormalNONE [facility] HospitalComment on above:Performed By: #### UAX, UMICAO #### [facility] [address] [place] [address] Insole Presser: Shyam Max MD Vital Signs Date TimeVital SignValuePerforming DdhffocnfBnlsmpsq05-58-5743 13:13-0400Body siavgi573 cmReg[facility]05-06-2024 13:13-0400Body mass index (BMI) [Ratio]28.3 kg/m2CymylvhegRegency Hospital [facility] West05-06-2024 13:130400Body kafxze10.12 kgRegency Hospital [facility]05-06-2024 13:130400Diastolic blood swufugcw11 mm[Hg][facility] 11-05-2023 13:130400Heart rate64 /[facility] 11-05-2023 13:130400Respiratory rate16 /[facility] 11-05-2023 13:131929PgT3% (BldA) [Mass fraction]100 %[facility]05-06-2024 13:040Systolic blood lyitscfr809 mm[Hg][facility]12-21-2021 14:00-0500Body nuetax630.64 cmThomas Olexa Other [employer] Other 12-21-2021 14:00-0500Body mass index (BMI) [Ratio] 24.53 kg/y6Sowkri Olexa Other [employer] Other 12-21-2021 14:00-0500Body .95 kgThomas Olexa Other [employer] Other 11-15-2021 11:15-0500Body mnetlz518.64 cmThomas Olexa Other [employer] Other 11-15-2021 11:15-0500Body mass index (BMI) [Ratio] 24.69 kg/d2Upelmb Olexa Other [employer] Other 11-15-2021 11:15-0500Body capjvt68.4 kgThomas Olexa Other [employer] Other 10-28-2021 14:45-0400Body hlozxh177.64 cmThomas Olexa Other [employer] Other 10-28-2021 14:45-0400Body mass index (BMI) [Ratio] 25.05 kg/z5Horoua Olexa Other [employer] Other 10-28-2021 14:45-0400Body ikdltp62.4 kgThomas Olexa Other [employer] Other 05-23-2020 15:17-0400BP Cwefrjbwi45 mm[Hg][facility] HospitalROVOP [facility], VJ92-57-2744 15:17-0400BP Uzpjbvng499 mm[Hg][facility] HospitalROVOP [facility] KT42-22-8829 15:17-0400Pulse (Heart Rate)63 /min [facility] HospitalJimuboxWellington Regional Medical Center SL27-17-8624 15:17-0400Pulse Enxmrvek08 % [facility] HospitalROVOP [facility] OT88-67-0104 15:17-0400Respiratory Rate14 /min [facility] HospitalROVOP [facility] QJ99-46-9449 10:17-0400BMI (Body Mass Index) 26.13 kg/y8NofxsmunsShriners Hospitals for Children Northern CaliforniaJimuboxWellington Regional Medical Center YA24-14-9261 10:17-0400Body Cijcgxjovmu80.3 [degF][facility] HospitalJimuboxWellington [facility] Center QF47-88-8419 10:17-[address]iatric CenterJimuboxWellington Regional Medical Center JK87-03-7798 10:17-0400 Pcgehg584.1 cmAlexAma, [place] Encounters Encounter DateEncounter TypeCare ProviderFacilityStart: 11-05-2023 End: 73-13-6866adfaagwyojXjdxtxuqkCity Hospital Work Phone: Start: 11-05-2023 End: 26-34-4443Utcjjiv encounter procedureAtrium Health Physician GroupCHRISTIAN [facility] Work Phone: Start: 10-03-2023 End: 27-43-3774purtrjptzaLDACE A PETITTINot AvailableStart: 63-96-4719Mkt- patient / Non-visitAtrium Health Physician Group-[facility] Work Phone: Start: 05-16-2023 End: 72-45-8835lcqrahbozqKXTSWZUS E RINKESNot AvailableStart: 04-26-2023 End: 55-36-9109eivpegymcxBG Dino Gomez Work Phone: [facility] Work Phone: Start: 04-26-2023 End: 13-28-6914Jrawxrj encounter procedureMD Dino Gomez Work Phone: [facility] [address] Work Phone: start: 06-21-2022 End: 17-04-9858lrawjrjrioYYNBOF CRAMERFacility:H9Cujtd: 12-28-2021 End: 61-94-5457wxgwlmflvqGI MARK NILLFacility:X7Dlxja: 89-05-8396rdizkfgjfhPA MARK NILLFacility:C4Idhfv: 80-98-7690xhbpszqbudHI MARK NILLFacility:H1 Start: 11-16-2021 End: 60-96-0011edrlzefetyKP DINO HOYFacility:D3Txihr: 11-10-2021 End: 19-79-9247qecxpbnuvmIH DINO HOYFacility:D3Libsy: 11-09-2021 End: 51-98-5027ojhukzpjdoAJ DINO HOYFacility:F0Knzhk: 06-21-2021 End: 81-60-4482zwhgfxsrghAeesim Olexa Other [place] [employer] Other Start: 80-42-9643Qzjjjm follow up visit related to original pxThomas OlexaROSSYG Desean GalvezevueStart: 05-16-2021 End: 87-58-3048rtetzsbnnjPufkuy Olexa Other [employer] Other Start: 36-45-2124Bmyysv follow up visit related to original pxThomas OlexaFPG Desean OrthopedicsStart: 05-10-2021 End: 58-19-6841ucewpprukmNwvfzq Olexa Other [employer] Other Start: 17-87-3839Jdtwxeaxj encounterThomas OlexaFPG Desean OrthopedicsStart: 05-02-2021 End: 39-06-4690qhqptfcxlnMlvebg Olexa Other [employer] Other Start: 10-58-8416Ljlnsrmki encounterThomas OlexaFPG Llano OrthopedicsStart: 45-74-5953Nakuxmgfr for other preprocedural examinationThomas OlexaFPG Desean Ortho BellevueStart: 99-98-4034Bexpnz outpatient visit 25 minutesThomas OlexaFPG [facility] Ortho BellevueStart: 11-22-2019 End: 88-06-0437Mynjlpufy department patient visitALEXANDER A MIRAKettering Health Prebletart: 11-22-2019 End: 83-68-6192Sjhwqjetl department patient visitAlexander A Taco Work Phone: [facility] EDComment on above:Flank pain (Primary Dx) Procedures DateProcedureProcedure DetailPerforming ClinicianStart: 16-02-4626MODRW OXIMETRY [facility] INSTITUTEROVStart: 42-52-9362Ji abdomen & pelvis w/o contrast material [facility] INSTITUTEROVStart: 65-00-7818Islpr count complete auto&auto difrntl wbc [facility] MEDIC[facility] INSTITUTEROtart: 69-16-6690Qgmdlxllsyiuc metabolic panelALEXANDER [facility] Start: 54-90-4391Qfobxfzdxycn chorionic qualitativeALEXANDER KIN[facility] HOSPITAL NORTHEASTtart: 47-48-1852Eatdeaw bacterial quanttative colony count urineALEXANDER BOBROVStart: 93-44-8373Oyuifyrsin microscopic onlyALEXANDER BOBROVStart: 66-66-6263Osmbm dip stick/tablet rgnt auto w/o microscopyALEXANDER BOBROVStart: 38-38-7129Ec abdomen & pelvis w/o contrast materialAlexander A [facility] Work Phone: Start: 74-08-6701CKMNV METABOLIC PANEL W/ REFLEX TO MG FOR LOW KAlexander A [facility] Work Phone: Start: 72-40-6740Uxjau count complete auto&auto difrntl wbcAlexander A [facility] Work Phone: Start: 69-90-9535Mpssbmwwclce chorionic qualitative Dontae A [facility] Work Phone: Start: 91-27-6185Atykqflsza microscopic onlyAlexander A [facility] Work Phone: Start: 15-42-5816Bpgxa dip stick/tablet rgnt auto w/o microscopyAlexander A [facility] Work Phone: Plan of Treatment DateCare ActivityDetailAuthorStart: 47-64-1795Zaetnmbah vaccinationFlu vaccine (Season Ended)[facility]: 11-61-7369Mlptfdtvs for malignant neoplasm of breastBreast cancer screenMiami Valley Hospital: 2018 Screening for malignant neoplasm of colonColon cancer screen colonoscopyMi[facility] Valley Hospital: 42-94-3507Ydqduqih Vaccine (1 of 2)Shingles Vaccine (1 of 2)[facility]: 46-50-8683Upvadxii screenDiabetes [facility]: 72-66-0024Svxey panelLipid screenMiami Valley Hospital: 50-78-6278Ofojebkul for malignant neoplasm of cervixCervical cancer screenMiami Valley Hospital: 90-63-3793YEvH/Tdap/Td vaccine (1 - Tdap)DTaP/Tdap/Td vaccine (1 - Tdap)[facility]: 31-93-2340PHD screeningHIV screen [facility] HospitalJAYLENECT ABDOMEN PELVIS WO CONTRAST Additional Contrast? NoneCT ABDOMEN PELVIS WO CONTRAST Additional Contrast? None Imaging STAT 11/22/2019 10:55 AM AZRATrinity [facility] System [facility] City Medical CenterJAYLENE End: 98-55-0746Mgmjthd, UrineCulture, Urine Microbiology STAT One Time for 1 Occurrences starting 11/22/2019 until 11/22/2019Mart[facility] Ferry HospitalJAYLENEComment on above:One Time for 1 Occurrences starting 11/22/2019 until 11/22/2019Culture, UrineCulture, Urine Microbiology STAT 11/22/2019 10:15 AM [facility] HospitalJAYLENE Immunizations Immunization DateImmunizationNotesCare DmivhflhHdhnpzoc90-60-2276NBCIF-36 Isabel Moon (Pfizer)MD Dino Gomez Work Phone: [facility]09-02-2021COVID-19 Isabel Moon (Michael)MD Dino Gomez Work Phone: [facility]03-21-2013TB Test Lillian Olexa Other [employer] Other [id number] TestThomas Olexa Other [employer] Other Payers DatePayer CategoryPayerPolicy [id number] .1.295157.3.57[id number] 2..1.919863.3.579.[id number] 2.1.372856.3.579.2.96161-95-3255Goiduvj0435882 2.16.840.1.631931.3.579.2.47819-86-2884Myetnvw3134227 2..0.1.988951.3.579.2.32040-45-0498Hfxkvtc0436964 2..840.1.481902.3.57[id number] 2..0.1.166231.3.579.2.44994-99-2675Xadnikd4274537 2..0.1.083061.3.579.2.723503-23-6779Cnxiorc85053 2..0.1.499266.3.579.2.533120-48-2421Rcmh Cross Good Samaritan [id number] [id number] 3ww7750n-0642-53cn-z96g-4og538k3b3s4 [id number] 2.0.1.4714[id number] 0729619q-605h-82fz-ws16-tikpu8g5853e Social History DateTypeDetailFacilityStart: 11-22-2019 End: 95-52-9826Ulzhryn smoking status NHISNever smokerRegional Medical Centertart: 50-94-0309Kximbxt intakeEx-drinker (finding)[facility] WorldAPPKANSAS CITY VA [facility], [place] Sex Assigned At BirthNot on fileMartins Ferry Hospital, KYExposure to SARS-CoV-2 (event)Unable to assessMartins Ferry Hospital, KYSex Assigned At BirthSex Assigned At [facility] HospitalNocooper [facility] memorial hospital [email or web address] Other Start: 95-65-9195Oza Assigned At [facility] HospitalFeMadison Health Medical Equipment Procedure CodeEquipment CodeEquipment Original TextEquipment IdentifierDates Arthroscopy, shoulderTendon/ligament bone anchor, non-bioabsorbable ()[id number] FDAStart: 05-04-2021 Clinical Note 12-28-2021 Note Date & WkmsEmwzNernloaj85-60-5096 NoteThe [place], [place] NAME: CARLOS CISNEROS DATE OF : MEDICAL REC#: [id number] 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 POSTOPERATIVE DIAGNOSIS: Normal EGD and normal colonoscopy to cecum. SURGEON: Mark Richards M.D. ANESTHESIA: Monitored anesthesia care. ESTIMATED BLOOD LOSS: Zero. INDICATIONS AND CONSENT: Patient is a 51-year-old female with history of intermittent epigastric abdominal pain, as well as need for colorectal screening. Indications, risks, benefits, alternatives of proceeding with EGD and colonoscopy were explained extensively to the patient, including the risks of bleeding, aspiration, esophageal, gastric, duodenal or colonic perforation or anesthetic complications. All of her questions were answered. Informed consent was obtained. PROCEDURE: Patient was brought to the operating room, placed in the left lateral decubitus position. Monitored anesthesia care was provided. Bite block was placed in the patient's mouth. Scope was inserted into the oropharynx. Under direct visualization, it was advanced into the esophagus, past the cricopharyngeus, down to the stomach. The stomach was insufflated with air. The pylorus was traversed down to the descending portion of the duodenum. There was no evidence of duodenitis or ulceration. There was no scarring within the pyloric channel. Scope was pulled back into the stomach and retroflexed. There was no significant hiatal hernia. The GE junction was noted at approximately 38 cm. There were no distal esophagitis or Bishop's changes. The remainder of the esophagus was unremarkable. The scope was then withdrawn. Patient tolerated procedure well, was positioned for colonoscopy. Rectal exam was performed which showed no masses or blood. The scope was inserted in the anal canal. Under direct visualization, it was advanced. With the aid of abdominal compression, it was advanced to the cecum where cecal markings were clearly identified. There was noted to be a good prep. Upon withdrawal of the scope, mucosal surfaces were carefully examined. There were no mass lesions or polyps noted. No inflammatory changes or ulcerations. No significant diverticulosis. The scope was then withdrawn. Patient tolerated procedure well, was sent to recovery room in good condition. recommend follow up colonoscopy in 10 years for colorectal screening. CC: Dino Gomez M.D. Electronically Authenticated and Edited by: Mark Richards MD on 12/30/2021 04:27 PM EDT IFC Signed and Approved by: DR MARK RICHARDS . 12/30/2021 16:27:00[facility] Evaluation note 06-21-2021 Note Date & QkqpTxttDdaljbgw54-71-8980 Evaluation note* Encounter Date Diagnosis Assessment Notes Treatment Notes Treatment Clinical Notes Jun, Other specified postprocedural s tates (ICD-10 - Z98.890) Jun,Tear of right supraspinatus tendon (ICD-10 - M75.101) Patient instructed on discontinuing the sling. Begin gentle acitve assisted motion exercise including table and wall walks. This was demonstrated. Instructed on progression of motion exercise in flexion, internal rotation and external rotation. Instructed on use of heat to help with motion. [employer] Other Evaluation note 05-16-2021 Note Date & VeltCqpuFtveourm45-47-8882 Evaluation note* Encounter Date Diagnosis Assessment Notes Treatment Notes Treatment Clinical Notes May, Other specified postprocedural s tates (ICD-10 - Z98.890) May,Tear of right supraspinatus tendon (ICD-10 - M75.101) Radiographs reviewed with patient and company. Patient instructed to continue use of sling. Instructed on gentle passive pendulum shoulder motion and active elbow and wrist exercise multiple times a day. Discussed limiting use of narcotic if possible. Discussed use of ice and heat for pain relief. [employer] Other History general Narrative - Reported 05-04-2021 Note Date & MktiKncdFojohcdt24-84-3641 History general Narrative - Reported* Type Description Date Surgical History lymph node resection right shou lder Surgical Historyright shoulder arthroscopy with supraspinatus rotator cuff repair, subacromial scegmflvppywz71/3/21 [employer] Other Evaluation note 05-02-2021 Note Date & IdwxZddgEvsykzbz43-73-8805 Evaluation note* Encounter Date Diagnosis Assessment Notes Treatment Notes Treatment Clinical Notes May, Other specified postprocedural s tates (ICD-10 - Z98.890) [employer] Other Evaluation note 04-28-2021 Note Date & CogaPxwgJgahajra27-58-9553 Evaluation note* Encounter Date Diagnosis Assessment Notes Treatment Notes Treatment Clinical Notes Apr, Tear of right supraspinatus tend on (ICD-10 - M75.101) MRI reviewed with patient as supraspinatus tear. We will plan on arthroscopic rotator cuff repair. The patient has stated that they do not want to live in this condition any longer and would like toproceed with surgery. I feel that this is a reasonable option at this point and we may be able to improve function and decrease pain. We have discussed the process and procedure in detail including not eating or drinking 8 hrs prior to surgery, the need for general anesthesia and associated respiratory, cardiac, and patient position complications (such as nerve traction and compression). The benefit of regional block anesthesia and complications of arm numbness and neck pain. We discussed that pain and stifffness can be expected after surgery for months. 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 Patient is fully aware that this shoulder may never be the same. We discussed that our team will do everything we can to help achieve the best outcome. Advised patient plan to be off work at least 8-12 weeks post op. Apr,cute pain of right shoulder (ICD-10 - M25.511) Apr,re-op exam (ICD-10 - Z01.818) [employer] Other Evaluation note Note Date & TypeNoteFacilityEvaluation noteNo InformationNort [email or web address] Other Evaluation note Note Date & TypeNoteFacilityEvaluation noteNo assessment information available [facility] Work Phone: History general Narrative - Reported Note Date & TypeNoteFacilityHistory general Narrative - Reported* Type Description Date Surgical History lymph node resection right jason sandoval [employer] Other Discharge Instructions * Instructions* Dontae España DO - 11/22/2019 Return to the Emergency Department immediately if you develop any shortness of breath, chest pain, worsening back or abdominal pain, vomiting , or you have any other concerns. Please follow up with your urology and primary care doctor in 2-3 days. * Attachments The following attachments cannot be sent through Care Everywhere. * Flank Pain (Botswanan) documented in this encounter Assessments Diagnosis Flank pain Abdominal pain, unspecified site Advance Directives No Advanced Directives Records FoundDocuments on File TypeDate RecordedPatient RepresentativeExplanationAdvance Directives and Living WillPower of Net Mender Advance Directive Response Recorded Date/ Time Advance Directives No May 03, 2021 2:34pm Advance Directive Response Recorded Date/ Time Advance Directives No May 03, 2021 3:34pm Summary Purpose Family History No Family History Records Found Relationship Condition Age at Onset Recorded Date/T sahil Not Specified Healthy female adult Unknown sisterDisorder of thyroidUnknownbrotherHypertensionUnknown Relationship Condition Age at Onset Recorded Date/T sahil sister Disorder of thyroid Unknown brotherHypertensionUnknownfatherDeceasedUnknownNot SpecifiedDeceasedUnknown Chief Complaint and Reason for Visit Chief Complaint Covid Vax Chief Complaint Lab Danny Additional Source Comments Reason for Visit (unrecogniz ed section and content) ReasonCommentsFlank Painright side flank INFORMATION SOURCE (unrecogn ized section and content) DATE CREATED AUTHOR 11/28/2019 [facility] DATE CREATED AUTHOR AUTHOR'S ORGANIZ ATION 07/01/2022 [facility] DATE CREATED AUTHOR AUTHOR'S ORGANIZ ATION 06/12/2023 [facility] DATE CREATED AUTHOR AUTHOR'S ORGANIZ ATION 10/05/2023 [facility] DATE CREATED AUTHOR AUTHOR'S ORGANIZ ATION 11/06/2024 [facility] Care Teams (unrecognized sec tion and content) Team Status: Active Member Role Status Dates Dino Gomez MD Primary Care Provider Active Team Status: Active Member Role Status Dates Dino Gomez MD Primary Care Provide r, Attending Provider Active Start: September 14, 2023 Team Status: Inactive Member Role Status Dates Dino Gomez MD Primary Care Provider Active Start: November 05, 2023 End: November 05, 2023Alexandra Dread Brush LUIZNAtdilan ProviderActiveStart: November 05, 2023 End: November 05, 2023 Team Status: Inactive Member Role Status Dates Dino Gomez MD Primary Care Provider Active Holden Akins DO CHCAttending ProviderActive Goals (unrecognized section and content) Goals may be documented in a n alternate section FOR RECORDS PERTAINING TO PATIENTS WHO ARE OR HAVE BEEN ENROLLED IN A CHEMICAL DEPENDENCY/SUBSTANCEABUSE PROGRAM, SOME INFORMATION MAY BE OMITTED. This clinical summary was aggregated from multiple sources. Caution should be exercised in using it in the provision of clinical care. This summary normalizes information from multiple sources, and as a consequence, information in this document may materially change the coding, format and clinical context of patient data. In addition, data may be omitted in some cases. CLINICAL DECISIONS SHOULD BE BASED ON THE PRIMARY CLINICAL RECORDS. [employer] [facility]. provides no warranty or guarantee of the accuracy or completeness of information in this document.
--- OUTSIDE RECORDS SUMMARY | 2025-05-11 07:56 | XMS_ITS | Clinical Summary ---
Author Organization [facility] Address [address], [address] [place] [address] Care Team Providers Care Director Card Name Role Phone Rehan Gomez MD Primary Care Provider [phone] Allergies No known active allergies Medications No known medications Social History Tobacco UseTypesPacks/DayYears UsedDateSmoking Tobacco: NeverSmokeless Tobacco: NeverAlcohol UseStandard Drinks/WeekCommentsNot Currently0 (1 standard drink = 0.6 oz pure alcohol)CommentsNoSex and Gender InformationValueDate RecordedSex Assigned at BirthNot on fileLegal RekAwntve11/23/2020 10:07 AM EDT Gender IdentityNot on fileSexual OrientationNot on file Last Filed Vital Signs Vital SignReadingTime TakenCommentsBlood Phogykah486/6105 3:17 PM EDT Fmglb278011/22/2019 3:17 PM BQCRyjyersghhf73.3 ??C (97.3 ??F)11/22/2019 10:17 AM EDTRespiratory Znio234711/22/2019 3:17 PM EDTOxygen Lxpfvztxzk28%11/22/2019 3:17 PM EDTInhaled Oxygen Concentration--Iijkdn39.2 kg (157 lb)11/22/2019 10:17 AM WJMBkwbel614.1 cm (5' 5 )11/22/2019 10:17 AM EDTBody Mass Index26.1305 10:17 AM EDT Plan of Treatment Not on file Insurance Care Teams Team MemberRelationshipSpecialtyStart DateEnd Date Rehan Gomez MD [address] [place] [address] PCP - GeneralFamily Medicine11/22/19
--- OUTSIDE RECORDS SUMMARY | 2025-05-11 07:56 | XMS_ITS | Clinical Summary ---
Author Organization [facility] Address [address] [place] [address] Care Team Providers [employer] Name Role Phone Rehan Gomez MD Primary Care Provider [phone] Allergies No known active allergies Medications No known medications Active Problems No known active problems Family History Medical HistoryRelationNameCommentsNo Known ProblemsFatherNo Known Problems MotherBreast cancerPaternal GrandmotherMelanomaNeg HxRelationNameStatusComments DaughterAliveFatherMotherPaternal GrandmotherSonAlive2 Social History Tobacco UseTypesPacks/DayYears UsedDateSmoking Tobacco: NeverSmokeless Tobacco: Never Tobacco Cessation:Counseling Given: Not Answered Alcohol UseStandard Drinks/WeekCommentsYes0 (1 standard drink = 0.6 oz pure alcohol)Caffeine intake: >4 cups per dayAUDIT-CAnswerDate RecordedQ1: How often do you have a drink containing alcohol?4 or more times a week05/15/2023Q2: How many drinks containing alcohol do you have on a typical day when you are drinking?1 or Q3: How often do you have six or more drinks on one occasion?Never05/15/2023CommentsUnknownSex and Gender InformationValue Date RecordedSex Assigned at ZksxiWtewjc78/14/2023 7:14 PM ESTLegal SexFemale 09/13/2022 7:11 PM EDTGender VvhfmnktWoilub07/14/2023 7:14 PM ESTSexual OrientationNot on file Last Filed Vital Signs Vital SignReadingTime TakenCommentsBlood Mpwyhwmr907/7005/16/2023 9:59 AM EST Pulse--Temperature--Respiratory Rate--Oxygen Saturation--Inhaled Oxygen Concentration--Ojgkan59.8 kg (165 lb)05/16/2023 9:59 AM ZOCXvdogc443.1 cm (5' 5 )05/16/2023 9:59 AM ESTBody Mass Index27.4605/16/2023 9:59 AM EST Plan of Treatment Not [place] [address] Care Teams Team MemberRelationshipSpecialtyStart Date Rehan Gomez MD PCP - GeneralFamily Vlclikfr56/15/23
--- OUTSIDE RECORDS SUMMARY | 2025-05-11 07:56 | XMS_ITS | Patient Health Record ---
Author Organization [facility] [place] Address [address] [place] [address] Care Team Providers Care Outpatient Coordinator Name Role Phone Jaren Gomez Primary Care Provider Allergies No Known Allergies Results Component Value Reference Range Notes COVID-19, Flu A+B IH (Not ye t reviewed by provider) Interpretation: Performing Lab: Notes/Report: COVID neg FLU APOSFLU BnegControlpos Reason For Referral No Information Medications Medication SIG (Take, Route, Frequency, Duration) [...] year?2 to 4 times a month (2 points)Demqbd8Qsykggosijrcti Positive Problems Problem Type SNOMED Code ICD Code Onset Dates Problem Status W/U Status Risk Notes Problem Supraventricular tachycardia (64 35274) Supraventricular tachycardia (I47.1) ActiveconfirmedProblemFatigue (17332127)Fatigue (R53.83)ActiveconfirmedProblem Anxiety (80846818)Anxiety (F41.9)ActiveconfirmedProblemTendonitis (88189429) Tendonitis (M77.9)ActiveconfirmedProblemInsomnia (661663670)Insomnia (G47.00) ActiveconfirmedProblemMigraine (42546879)Migraine (G43.909)Activeconfirmed ProblemRight knee pain (993850611864303)Right knee pain (M25.561)Activeconfirmed ProblemNephrolithiasis (67122704)Nephrolithiasis (N20.0)ActiveconfirmedProblem Gastritis (4053337)Gastritis (K29.70)ActiveconfirmedProblemWell adult (889517545)Well adult (Z00.00)ActiveconfirmedProblemDiverticulitis (70523988) Diverticulitis (K57.92)ActiveconfirmedProblemSeizure disorder (554339045)Seizure disorder (G40.909)ActiveconfirmedProblemOverweight (289044944)Over weight (E66.3)ActiveconfirmedProblemImpingement syndrome of shoulder (767410253) Impingement syndrome of shoulder (M75.40)ActiveconfirmedProblemFibrocystic breast changes (32902115)Breast changes, fibrocystic (N60.19)Activeconfirmed ProblemNon-traumatic tendon rupture (111232928)Spontaneous rupture of extensor tendon (M66.20)ActiveconfirmedProblemBreast mass (68922596)Breast mass (N63.0) Activeconfirmed Vital Signs Temperature 100.9 degrees Fahrenheit 09/16/2024 Blood pressure dghhcdgru57 mm Hg05/08/20257201Olmdrv34 in05/08/2025lood pressure wpfewtod140 mm Hg05/08/20255070Fekeoz423.8 lbs107/08/2024BMI22.76 kg/m205/08/2025 Encounters Encounter Location Date Provider Diagnosis [facility] [address] [place] [address] 05/08/2025 Jaren Hoy Well adult Z00.00 [facility] [address] [place] [address] 09/16/2024 Jaren Gomez Nasal congestion R09.81 and Influenza J11.1 [facility] [address] [place] [address] 05/08/2025 Jaern Gomez Assessments Encounter Date Diagnosis (ICD Code) Assessment Notes Treatment Notes Treatment Clinical Notes Section Notes 09/16/2024 Nasal congestion (ICD-10 - R09.8 1) 09/16/2024Influenza (ICD-10 - J11.1)05/08/2025Well adult (ICD-10 - Z00.00) 09/16/2024OtherRest and drink more liquids, especially water. You may use a humidifier or vaporizer to help keep the drainage moist. Dykz-vaa-stfbalg Nasal Saline may help the stuffy and runny nose. Use Ibuprofen and or Tylenol as needed for fever, chills, body aches or pain. Children 5 years old should not be given bcka-foh-qqxlvsk cough and cold medications such as guaifenesin and dextromethorphan. If you're over age 5, you may try ruzc-iio-gotatum cold medications such as guaifenesin and dextromethorphan, or multi-symptom cold reliever such as Dayquil to help reduce the symptoms. Follow up with your Prima ry Care Provider or return to clinic if symptoms do not improve within 3-5 days. If you develop severe symptoms such as shortness of breath, repeated vomiting, coughing up blood, or chest pain you should go to the emergency room or call 911. Plan Of Treatment Pending Test Test Name Order Date HEMOGLOBIN A1C (GLYCO) 05/08/2025 IRON, TOTAL 05/08/2025 LIPID PANEL (CHOL/TRIG/HDL/LDL) 05/08/20 25 COVID-19, Flu A+B IH 09/16/2024 XR LSPINE MIN 4 VIEWS 05/08/2025 THYROID PANEL (T4/TSH/FREE T3) 5 MM screening mammo BI 05/08/2025 XR sacrum coccyx min 2V 05/08/2025 CMP (COMP MET SEALS) w/eGFR CKD-EPI 2024 CBC WITH DIFF 05/08/2025 Insurance Providers Payer Name Payer Address Payer Phone Subscriber Number Group Number Insured Name Patient Relationship to Insured Coverage Start Date Coverage End Date [employer] PPO [employer] LOCAL PLAN [address] [place] [id number] Emmett Gomez - patient is the insured Medical (General) History Medical History History ICD Code closed head injury panic attacksabnormal papsyncopeSurgical History Surgery Date(Month/Year) right rotator cuff colorectal screen 12/28/21
--- NOTE | 2025-05-11 08:04 | XR_ITS ---
The [address] [address] Patient Name: CARLOS CISNEROS MRN: [id number] date: 1970 Sex: F Assigned Patient Location: LAB Current Patient Location: LAB Accession/Order Number: [id number] Exam Date: 05/11/2025 08:15 Report Date: 05/11/2025 09:10 At the request of: DINO COLLAZO MD Procedure: XR sacrum coccyx min 2V CLINICAL DATA: Low back pain for the past 2 months. No injury. SACRUM AND COCCYX -3 views COMPARISON: None Lateral as well as AP views in upward and downward projection were obtained. No fracture or displacement is identified. The SI joints are maintained and there is minor sclerosis. The sacral foramen appear intact. No soft tissue abnormalities are seen. XR/XR sacrum coccyx min 2V IMPRESSION: NO ACUTE BONY FINDINGS. Impression dictated by: Sharon Coffman M.D. 05/11/2025 9:10 AM Dictation Location: [place] [address] Electronically authenticated by: [id number] Y Date: 05/11/2025 09:10
--- NOTE | 2025-05-11 08:04 | XR_ITS ---
The [address] [address] Patient Name: CARLOS CISNEROS MRN: [id number] date: 1970 Sex: F Assigned Patient Location: LAB Current Patient Location: LAB Accession/Order Number: [id number] Exam Date: 05/11/2025 08:15 Report Date: 05/11/2025 09:34 At the request of: DINO COLLAZO MD Procedure: XR lumbar spine min 4V LUMBAR SPINE -4 views: CLINICAL HISTORY: Low back pain for the past 2 months COMPARISON: None AP, lateral and both oblique views of the lumbosacral junction were obtained. There is subtle levoscoliotic curvature. There is no acute compression fracture. There is minimal stairstep retrolisthesis from L1-2 through L4-5. The disc spaces are normal in height. There is mild endplate spurring and lower lumbar facet hypertrophy. No pars defect is identified. The sacroiliac joints are maintained and show mild sclerosis. There are no paraspinal soft tissue abnormalities. XR/XR lumbar spine min 4V IMPRESSION: SUBTLE SCOLIOSIS AND MILD DEGENERATIVE CHANGES, DESCRIBED Impression dictated by: Sharon Coffman M.D. 05/11/2025 9:34 AM Dictation Location: [place] [address] Electronically authenticated by: [id number] Y Date: 05/11/2025 09:34
[2025-05-11 08:17] LABS: Hematocrit 35.3 % (36.0-48.0); Hemoglobin 10.5 g/dL (12.0-16.0); Immature Granulocytes Abs Auto 0.02 10^3/uL (0.00-0.03); Immature Granulocytes Pct Auto 0.2 % (0.0-0.5); Lymphocytes Absolute Auto 2.8 10^3/uL (1.2-3.8); Mean Corpuscular HGB Conc 29.7 g/dL (29.9-35.2); Mean Corpuscular Hemoglobin 18.1 pg (26.7-34.0); Platelet Count 331 10^3/uL (150-450); Red Blood Count 5.81 10^6/uL (4.20-5.40); White Blood Count 9.6 10^3/uL (4.0-11.0)
[2025-05-11 08:51] LABS: Mean Corpuscular Volume 60.8 fL (81.0-99.0)
[2025-05-11 10:50] LABS: Iron 55.0 ug/dL (50.0-170.0)
[2025-05-11 11:06] LABS: Alanine Aminotransferase 16 U/L (14-59); Albumin Globulin Ratio 1.2; Albumin Level 3.9 g/dL (3.4-5.0); Alkaline Phosphatase 71 U/L (46-116); Anion Gap 12.0; Aspartate Amino Transferase 14 U/L (15-37); Blood Urea Nitrogen 18.0 mg/dL (7.0-18.0); Calcium 9.0 mg/dL (8.5-10.1); Carbon Dioxide 29.3 mmol/L (21.0-32.0); Chloride 106 mmol/L (98-107); Cholesterol 163 mg/dL (<=200); Estimated GFR (African America >60 (>=60 mL/min/1.73m^2); Estimated GFR (Non-African Ame >60 (>=60 mL/min/1.73m^2); Free T3 1.74 pg/mL (2.18-3.98); Globulin 3.2 g/dL; Glucose 83 mg/dL (74-106); HDL Cholesterol 55 mg/dL (40-60); Potassium 4.3 mmol/L (3.5-5.1); Sodium 143 mmol/L (136-145); Thyroid Stimulating Hormone 0.807 uIU/mL (0.358-3.740); Total Protein 7.1 g/dL (6.4-8.2); Triglycerides 65 mg/dL (<=150); VLDL CHOLESTEROL 13.0 mg/dL
== END 2025-05-11 07:50 | disposition home or self-care (01) ==
LOC: LAB 07:51
PROVIDERS: PCP Family Medicine; Visit Provider Family Medicine
DX: Z00.00 Encounter for general adult medical examination without abnormal findings (principal); S39.92XA Unspecified injury of lower back, initial encounter; M41.86 Other forms of scoliosis, lumbar region; M51.369 Other intervertebral disc degeneration, lumbar region without mention of lumbar back pain or lower extremity pain
CPT/HCPCS: 36415; 72110; 72220; 80053; 80061; 83036; 83540; 84436; 84443; 84481; 85025

== ENCOUNTER 2025-05-18 09:17 | Outpatient (OUT) | payer BC, SELFPAY ==
--- NOTE | 2025-05-18 09:19 | MM_ITS ---
Patient Name: CARLOS CISNEROS MR#: [id number] : 1970 Exam Date: 05/18/2025 Ordering Doctor: DR DINO COLLAZO . RADIOLOGY REPORT PROCEDURE: MM TOMOSYNTHESIS SCREENING BI COMPARISON: MG MAMM SCREEN DANIELA W CAD, 01/17/2017. MG MAMM DANIELA SCRN W CAD DIG, 09/26/2013. INDICATIONS: Screening Calculator Name NCI Breast Cancer Risk Assessment Tool 5 Year Breast Cancer Risk 1.00% Lifetime Breast Cancer Risk 6.60% Personal Breast Cancer No Personal Ovarian Cancer No Treatments None Family Cancers Grandmother-paternal with breast cancer at age ~58. LOCATION: [facility] BREAST COMPOSITION: There are scattered areas of fibroglandular density. FINDINGS: RIGHT BREAST: No significant suspicious finding. Similar focal asymmetries are present. LEFT BREAST: No significant suspicious finding. Similar focal asymmetries are present. Benign-appearing calcifications are present. DIAGNOSTIC CATEGORY 2--BENIGN FINDING. NO CHANGE FROM COMPARISON. RECOMMENDATIONS: ROUTINE MAMMOGRAM AND CLINICAL EVALUATION IN 12 MONTHS. Dictated by: Estrada Bhardwaj MD on 05/18/2025 at 15:33 Approved by: Estrada Bhardwaj MD on 05/18/2025 at 15:40
--- OUTSIDE RECORDS SUMMARY | 2025-05-18 09:25 | XMS_ITS | CCD ---
Author Organization [facility] Care Team Providers Care Financial Services Associate Name Role Phone Dino Gomez Primary Care Provider [phone] DONTAE ESPAÑA Attending Unavailable DINO GOMEZ Primary [...] Unavailable MD Dino Gomez Primary Care Provider [phone] DO Holden Akins Attending Provider [phone] Holden Akins Attending Unavailable Holden Akins Admitting Unavailable Dino Gomez Primary Care Unavailable DEANN GUNN Attending Unavailable DEANN GUNN Referring Unavailable THALIA SALINAS Attending Unavailable Medications Current Medications MedicationDrug Class(es)DatesSig (Normalized)Sig (Original)Acetaminophen (5 sources)Tylenol ActiveBiotin (1 source)Start: 11-70-5488tqeg 1 capsule by mouth once dailybiotin Active 1 CAP PO Daily November 05, 2023 12:00amcephalexin 500 mg oral capsule (3 sources)Cephalosporin AntibacterialStart: 52-61-5490saxs 1 capsule by mouth every eight hoursCephalexin 500 MG 1 capsule Orally every 8 hrs for 2 days May, ActiveCholecalciferol (1 source)Vitamin DStart: 11-32-1017abgz 1 capsule by mouth once daily cholecalciferol (vitamin D3) Active 1 CAP PO Daily November 05, 2023 12:00am lidocaine 0.04 mg/mg medicated patch (1 source)Antiarrhythmic, Amide Local AnestheticStart: 28-70-2288motkzdzqb 4 % external patch 1 patch Completed/Discontinued Medications MedicationDrug Class(es)DatesSig (Normalized)Sig (Original)acetaminophen 325 mg / oxyCODONE hydrochloride 5 mg oral tablet (5 sources)Opioid AgonistStart: 00-18-0460nhlq 1 tablet by mouth every four hours as needed for painPercocet 5-325 MG 1 tablet as needed for pain Orally up to every 4 hrs for 5 days May, Not-Takingibuprofen 200 mg oral tablet (2 sources)Nonsteroidal Anti-inflammatory DrugStart: 04-25-2021 End: 51-91-2082tnmj 1 tablet by mouth every four to six hoursIbuprofen (Advil) 200 mg Tablet Discontinued 200 MG PO EVERY 4-6 HOURS April 25, 2021 12:00am November 05, 2023 1:21pm instructed to stop 7 days before surgery; does not use with aleve.1 ml ketorolac tromethamine 15 mg/ml cartridge (2 sources)Nonsteroidal Anti-inflammatory Drug, Cyclooxygenase InhibitorStart: 11-22-2019 End: 23-06-3318vljqlksqh (TORADOL) injection 15 mg1 ml LORazepam 2 mg/ml injection (1 source)BenzodiazepineStart: 11-22-2019 End: 45-44-7365ZETzvmzqw (ATIVAN) injection 0.5 mg1 ml morphine sulfate 10 mg/ml injection (1 source)Opioid AgonistStart: 11-22-2019 End: 12-64-2498zeqbrrne injection 6 mgnaproxen sodium 220 mg oral tablet (2 sources)Nonsteroidal Anti-inflammatory DrugStart: 04-25-2021 End: 53-03-5960Mivqzlcr Sodium (Aleve) 220 mg Tablet Discontinued 220 MG PO Twice daily April 25, 2021 12:00amMa2023 1:21pm Instructed to stop 7 days prior to surgery. Does not take with ibuprofen.2 ml ondansetron 2 mg/ml injection (2 sources)Serotonin-3 Receptor AntagonistStart: 11-22-2019 End: 83-38-1665qnfuhxooyzj (ZOFRAN) injection 4 mg50 ml sodium chloride 9 mg/ml injection (1 source)Start: 11-22-2019 End: .9 % sodium chloride bolus Problems Active Problems Problem ClassificationProblemDateDocumented DateEpisodic/ChronicAnxiety disorders (1 source)Anxiety disorder, unspecified; Translations: [ANXIETY DISORDER UNSPECIFIED]Onset: 29-25-7644FoscinySabg; stupor; and brain damage (1 source)Daytime somnolence; Translations: [Somnolence]22-86-4721Meejbhdl Epilepsy; convulsions (1 source)Epilepsy, unspecified, not intractable, without status epilepticus; Translations: [EPILEPSY UNS NOTINTRACT W/O SE]Onset: 46-01-6118FqeuxdeFzuaj screening for suspected conditions (not mental disorders or infectious disease) (8 sources)Encounter for screening for malignant neoplasm of cervix; Translations: [Encounter for screening for malignant neoplasm of colon]Onset: 69-04-5652UiqzyqnmPcykrhozqjjn (1 source)Encounter for immunization; Translations: [Encounter for immunization] Onset: 04-26-2023 Past or Other Problems Problem ClassificationProblemDateDocumented DateEpisodic/ChronicAbdominal pain (9 sources)Flank pain; Translations: [Epigastric pain]Onset: 73-22-8466Xidhmhuz Biliary tract disease (2 sources)Calculus of gallbladder without cholecystitis without obstruction; Translations: [CALCU GB W/O CHOLECYST W/O OBST]Onset: 79-89-6842PpobullgSxykpj and vomiting (1 source)Nausea; Translations: [NAUSEA]Onset: 62-13-7253VtpylnegNzgps connective tissue disease (5 sources)Supraspinatus tear; Translations: [Unspecified rotator cuff tear or rupture of right shoulder, not specified as traumatic]EpisodicOther connective tissue disease (3 sources)Unspecified rotator cuff tear or rupture of right shoulder, not specified as traumatic; Translations: [Tear of right supraspinatus tendon M75.101]Onset: 04-28-2021 Resolved: 60-66-2988ItjxbewhJcbie non-traumatic joint disorders (1 source)Pain in right shoulder; Translations: [Acute pain of right shoulder M25.511]Onset: 04-28-2021 Resolved: 94-52-8216NqgyhwnyNmzsrogy codes; unclassified (3 sources)Other specified postprocedural statesOnset: 05-02-2021 Resolved: 95-38-7756YizwpqbvAamzcjk tract infections (4 sources)Urinary tract infection, site not specified; Translations: [UTI SITE NOT SPECIFIED]Onset: 19-62-9975Idyfeqdc Results Test NameValueInterpretationReference RangeFacilityReminderson 11-03-2024 RemindersReminders From: Jeimy Russell MA To: N - Clinical; Sent: 11/03/2024 10:11:46 EDT Show up: 11/27/2026 10:11:00 EDT Subject: Colonoscopy recall 5 years Reminder/Recall Last colonoscopy: 12/28/2021 Repeat: 5 years Reason: Family hx of colonoscopy- Brother this is a change in hx since last colonoscopyNormalFisher [facility] - Chemistry and Chemistry - challengeon 31-64-6862Qqtdyooluvy [Mass/Vol]190 mg/dLCoshocton Regional Medical CenterCholesterol in HDL [Mass/Vol]56 mg/dLCoshocton Regional Medical CenterCholesterol in LDL [Mass/Vol] 113 mg/dLCoshocton Regional Medical CenterTriglyceride [Mass/Vol]120 mg/dL [facility] CenterAlbumin [Mass/Vol]4.5 g/dLCoshocton Regional Medical CenterALP [Catalytic activity/Vol]92 U/[facility] CenterALT [Catalytic activity/Vol]22 U/[facility] CenterAST [Catalytic activity/Vol]15 U/[facility] CenterBilirubin [Mass/Vol]0.7 mg/dLCoshocton Regional Medical CenterCalcium [Mass/Vol]9.7 mg/dL [facility] CenterChloride [Moles/Vol]102 mmol/[facility] Medical CenterCO2 [Moles/Vol]28 mmol/[facility] Creatinine [Mass/Vol]0.83 mg/dLCoshocton Regional Medical CenterGlucose [Mass/Vol]95 mg/dLCoshocton Regional Medical CenterPotassium [Moles/Vol]4.9 mmol/[facility] CenterProtein [Mass/Vol]7.1 g/dLSelect Medical TriHealth Rehabilitation Hospitalodium [Moles/Vol]141 mmol/[facility] Medical CenterUrea nitrogen [Mass/Vol]13 mg/dLCoshocton Regional Medical CenterFree T4 [Mass/Vol]1.15 ng/dLCoshocton Regional Medical CenterLaboratory - Hematology and Cell countson 41-52-3876CdB5r (Bld) [Mass fraction]5.4 %[facility] CenterErythrocyte distribution width (RBC) [Ratio]18.7 %[facility] Medical CenterHematocrit (Bld) [Volume fraction]40.6 %[facility] CenterHemoglobin (Bld) [Mass/Vol]12.0 g/dLCoshocton Regional Medical CenterMCH (RBC) [Entitic mass]17.7 pgFCleveland Clinic Mercy Hospital MCHC (RBC) [Mass/Vol]29.6 g/dLCoshocton Regional Medical CenterMCV (RBC) [Entitic vol]60 fLCoshocton Regional Medical CenterPlatelets (Bld) [#/Vol]401 10*3/[facility] HospitalRBC (Bld) [#/Vol]6.79 10*6/[facility] HospitalWBC (Bld) [#/Vol]7.3 10*3/[facility] HospitalNo Panel Informationon 98-93-6103CBDY Lskduaotnki05 mg/dLCoshocton Regional Medical CenterEstimated GFR (Non- Xcsdvxag40 mL/minCoshocton Regional Medical CenterThyroid Stimulating Hormone 3rd Gen0.81[facility] Medical CenterPAP ACOG PANEL 2: 30 to 65on 07-01-2022..NormalThe Veterans Health Administrationment on above:Result Comment: Performed at: WBPerformed By: #### [id number] #### [facility] [address] [address] [address] Brielle Beach Gdln ACOG Aklypni03-30FfyczaQrlGenesis HospitalComment on above:Performed By: #### [id number] #### [facility] [address] [address] [address] Brielle HillDIAGNOSIS:CommentOhioHealth Pickerington Methodist Hospital on above: Result Comment: NEGATIVE FOR INTRAEPITHELIAL LESION OR MALIGNANCY. Performed at: WBPerformed By: #### [id number] #### [facility] [address] [place] [address] Dr. Brielle HillHPV AptimaNegativeNormalNegativeThe [facility] HospitalCommymichigan medical center gladwin on above:Result Comment: This nucleic acid amplification test detects fourteen high-risk HPV types (16,18,31,33,35,39,45,51,52,56,58,59,66,68) without differentiation. Performed at: =GPerformed By: #### [id number] #### [facility] [address] [place] [address] Dr. Brielle HillHPEugenia Genotype ReflexCommentOhioHealth Pickerington Methodist Hospital on above:Result Comment: Criteria not met, HPV Genotype not performed. Performed at: WBPerformed By: #### [id number] #### [facility] [address] [place] [address] Dr. Brielle HillMethodology:CommentOhioHealth Pickerington Methodist Hospital on above: Result Comment: This liquid based ThinPrep(R) pap test was screened with the use of an image guided system. Performed at: WBPerformed By: #### [id number] #### [facility] [address] [place] [address] Dr. Brielle HillNote:CommentOhioHealth Pickerington Methodist Hospital on above:Result Comment: The Pap smear is a screening test designed to aid in the detection of premalignant and malignant conditions of the uterine cervix. It is not a diagnostic procedure and should not be used as the sole means of detecting cervical cancer. Both false-positive and false-negative reports do occur. . Performed at: WBPerformed By: #### [id number] #### [facility] [address] [place] [address] Dr. Brielle HillPerformed by:CommentOhioHealth Pickerington Methodist Hospital on above: Result Comment: Marlee Harry, Search Engineer (ASCP) Performed at: WBPerformed By: #### [id number] #### [facility] [address] [place] [address] Dr. Brielle HillSpecimen adequacy:[facility] on above:Result Comment: Satisfactory for evaluation. No endocervical component is identified. Performed at: WBPerformed By: #### [id number] #### [facility] [address] [place] [address] Dr. Brielle HillPREG HCG QUALon 45-52-3167XPVYGAVTP, QUALNegativeNormalNEGATIVE [facility] on above:Performed By: #### PREG #### [facility] [address] [place] [address] Dr. Brielle HillNM HEPATOBILIARY SCAN W EFon 81-86-8910JQ HEPATOBILIARY SCAN W EF EXAMINATION: NM HEPATOBILIARY [...] authenticated by: JORDAN ROCA Date: 2021-11-16 13:43NormalThe Turbeville HospitalCULTURE URINEon 58-62-5234ZFBCLWC URINECulture Observations: GREATER THAN TWO ORGANISMS PRESENT. PLEASE RESUBMIT CLEAN CATCH MID-STREAM URINE IF CLINICALLY INDICATED.NormalFayette County Memorial HospitalComment on above:Performed By: #### URCX #### [facility] [address] [address] [address] Brielle Gimenez RANDOM W/MICROSCOPICon 03-90-4026QZHOGSJIIMFY SEENNormalNONE SEENFayette County Memorial HospitalComment on above:Performed By: #### UAMIC #### [facility] [address] [place] [address] Dr. Brielle Ko Ql (U)SMALLAbnormalNEGATIVEFayette County Memorial HospitalComment on above:Performed By: #### UAMIC #### [facility] [address] [address] [address] Brielle Pisano SEENNormalNONE SEENFayette County Memorial HospitalCommymichigan medical center gladwin on above:Performed By: #### UAMIC #### [facility] [address] [address] [address] Brielle Wise (U)CLEARNormalCLEARFayette County Memorial HospitalCommymichigan medical center gladwin on above: Performed By: #### UAMIC #### [facility] [address] [address] [address] Brielle Leigh (U)YELLOWNormalYELLOWFayette County Memorial HospitalComment on above: Performed By: #### UAMIC #### [facility] [address] [address] [address] Brielle Riveraystals LM Nom (Urine sed)NONE SEENNormalNONE SEENPeoples Hospital on above:Performed By: #### UAMIC #### [facility] [address] [place] [address] Dr. Hannah ChangEpithelial cells LM Ql (Urine sed)MODERATEAbnormalNONE SEEN /RARE The [facility] HospitalCommymichigan medical center gladwin on above:Performed By: #### UAMIC #### [facility] [address] [address] [address] Brielle HillGlucose Ql (U)NegativeNormalNEGATIVEFayette County Memorial HospitalComment on above:Performed By: #### UAMIC #### [facility] [address] [address] [address] Brielle HillHemoglobin Ql (U)NegativeNormalNEGATIVESelect Medical Specialty [facility] on above:Performed By: #### UAMIC #### [facility] [address] [place] [address] Dr. Brielle HillKetones Ql (U)NegativeNormalNEGATIVEFayette County Memorial HospitalComment on above:Performed By: #### UAMIC #### [facility] [address] [place] [address] Dr. Brielle HillLEUKOCYTESNegativeNormalNEGATIVEFayette County Memorial HospitalComment on above:Performed By: #### UAMIC #### [facility] [address] [place] [address] Dr. Brielle DuongCOUSTRACEAbnormalNONE SEENFayette County Memorial HospitalComment on above:Performed By: #### UAMIC #### [facility] [address] [place] [address] Dr. Brielle HillNitrite Ql (U)NegativeNormalNEGATIVEFayette County Memorial HospitalComment on above:Performed By: #### UAMIC #### [facility] [address] [place] [address] Dr. Brielle HillpH (U)8.5 [pH]Normal5-9The [facility] HospitalComment on above: Performed By: #### UAMIC #### [facility] [address] [address] [address] Brielle HillRBCNONE SEENAbnormal0-2The [facility] HospitalComment on above: Performed By: #### UAMIC #### [facility] [address] [place] [address] Dr. Brielle HillSPEC GRAVITY1.131Umxltz6.005-<=1.025The [facility] HospitalComment on above:Performed By: #### UAMIC #### [facility] [address] [place] [address] Dr. Brielle Gimenez PROTEINNegativeNormalNEGATIVE/ TRACEFayette County Memorial Hospital Comment on above:Performed By: #### UAMIC #### [facility] [address] [place] [address] Dr. Brielle Mejiabilharshil Qn (U)8 {Mica'U}/dLAbnormal0.2 - 1.0The [facility] HospitalComment on above:Performed By: #### UAMIC #### [facility] [address] [place] [address] Dr. Brielle HillWBCNONLetha SEENNormalNONE SEENFayette County Memorial HospitalComment on above: Performed By: #### UAMIC #### [facility] [address] [place] [address] Dr. Brielle HillAMYLASEon 95-73-9624Fewcklr [Catalytic activity/Vol]46 U/LNormal 25-115The [facility] HospitalComment on above:Performed By: #### CBC #### [facility] [address] [place] [address] Dr. Brielle Sahu AUTO DIFFon 41-48-7549JLDV #0.0 103/ulNormal0.0-0.1F[facility] County Memorial HospitalComment on above:Performed By: #### CBC #### [facility] [address] [place] [address] Dr. Brielle HillBasophils/100 WBC (Bld)0.2 %Normal0.2-2.0[facility] Comment on above:Performed By: #### CBC #### [facility] [address] [place] [address] Dr. Brielle Suarez #0.1 103/ulNormal0.0-0.7The [facility] on above: Performed By: #### CBC #### [facility] [address] [place] [address] Dr. Brielle Crossosinophils/100 WBC (Bld)1.2 %Normal0.9-7.0[facility] Comment on above:Performed By: #### CBC #### [facility] [address] [place] [address] Dr. Brielle Crossrythrocyte distribution width (RBC) [Ratio]17.6 %Critically high 11.0-15.0The [facility] HospitalComment on above:Performed By: #### CBC #### [facility] [address] [place] [address] Dr. Brielle HillHematocrit (Bld) [Volume fraction]36.1 %Exkipw31.0-48.0The [facility] HospitalComment on above:Performed By: #### CBC #### [facility] [address] [place] [address] Dr. Brielle HillHemoglobin (Bld) [Mass/Vol]10.7 g/dLCritically low12.0-16.0The [facility] HospitalComment on above:Performed By: #### CBC #### [facility] [address] [place] [address] Dr. Brielle Tran #0.03 10e3/ulNormal0.00-0.03The [facility] HospitalComment on above:Performed By: #### CBC #### [facility] [address] [place] [address] Dr. Brielle Tran %0.3 %Normal0.0-0.5The [facility] HospitalComment on above: Performed By: #### CBC #### [facility] [address] [place] [address] Dr. Brielle StephensonH #4.3 103/ulCritically high1.2-3.8The [facility] Comment on above:Performed By: #### CBC #### [facility] [address] [place] [address] Dr. Brielle Chapmanmphocytes/100 WBC (Bld)38.6 %Eaewup89.5-60.0The [facility] HospitalComment on above:Performed By: #### CBC #### [facility] [address] [place] [address] DrReba Teresa DIFF REQNONormalThe [facility] HospitalComment on above: Performed By: #### CBC #### [facility] [address] [place] [address] Dr. Brielle Benz (RBC) [Entitic mass]18.4 pgCritically low26.7-34.0The [facility] HospitalComment on above:Performed By: #### CBC #### [facility] [address] [place] [address] Dr. Brielle Benz (RBC) [Mass/Vol]29.6 g/dLCritically low29.9-35.2The [facility]eville HospitalComment on above:Performed By: #### CBC #### [facility] [address] [place] [address] Dr. Brielle Benz (RBC) [Entitic vol]62.0 fLCritically low81.0-99.0The [facility] HospitalComment on above:Performed By: #### CBC #### [facility] [address] [place] [address] Dr. Brielle Hickman #0.7 103/ulNormal0.3-0.8The [facility] HospitalComment on above:Performed By: #### CBC #### [facility] [address] [place] [address] Dr. Brielle Boschocytes/100 WBC (Bld)6.0 %Normal1.7-12.0The [facility] Comment on above:Performed By: #### CBC #### [facility] [address] [place] [address] Dr. Brielle Solitario #5.9 103/ulNormal1.4-6.5The [facility] HospitalComment on above:Performed By: #### CBC #### [facility] [address] [place] [address] Dr. Brielle Gordonutrophils/100 WBC (Bld)53.7 %Awdiak34.0-75.0The [facility] HospitalComment on above:Performed By: #### CBC #### [facility] [address] [place] [address] Dr. Yilan ChangPlatelet mean volume (Bld) [Entitic vol]9.5 fLNormal9.5-13.5The [facility] HospitalComment on above:Performed By: #### CBC #### [facility] [address] [place] [address] Dr. Brielle HillPLT341 103/qbJvredd833-365Kic [facility] HospitalComment on above: Performed By: #### CBC #### [facility] [address] [place] [address] Dr. Brielle HillRBC5.82 106/ulCritically high4.20-5.40The [facility] Comment on above:Performed By: #### CBC #### [facility] [address] [place] [address] Dr. Brielle HillWBC11.0 103/ulNormal4.0-11.0The [facility] HospitalComment on above:Performed By: #### CBC #### [facility] [address] [place] [address] Dr. Brielle HillLIPASEon 24-56-6475Weesou [Catalytic activity/Vol]72.0 U/L Critically low73.0-393.0The [facility] HospitalComment on above:Performed By: #### CBC #### [facility] [address] [place] [address] Dr. Brielle HillPROF 14(COMP METB)on 92-03-2055Bfewllz [Mass/Vol]3.8 g/dLNormal 3.4-5.0The [facility] HospitalComment on above:Performed By: #### LIPA, CMP, CRISTIN, HSTROPN #### [facility] [address] [place] [address] Dr. Brielle HillAlbumin/Globulin [Mass ratio]1.2 {ratio}NormalThe Veterans Health Administrationment on above:Performed By: #### LIPA, CMP, CRISTIN, HSTROPN #### [facility] [address] [place] [address] Dr. Brielle HillALP [Catalytic activity/Vol]82 U/YRphtuw78-344Fqk Alyce HospitalComment on above:Performed By: #### LIPA, CMP, CRISTIN, HSTROPN #### [facility] [address] [address] [address] Brielle Ferreira [Catalytic activity/Vol]30 U/QBruptx09-07Vwv [facility] HospitalComment on above:Performed By: #### LIPA, CMP, CRISTIN, HSTROPN #### [facility] [address] [place] [address] Dr. Brielle Garciaon gap [Moles/Vol]11.9 mmol/LNormalThe [facility] Comment on above:Performed By: #### LIPA, CMP, CRISTIN, HSTROPN #### [facility] [address] [place] [address] Dr. Brielle HillAST [Catalytic activity/Vol]42 U/LCritically ocov74-27Wzv [facility] HospitalComment on above:Performed By: #### LIPA, CMP, CRISTIN, HSTROPN #### [facility] [address] [place] [address] Dr. Brielle HillBilirubin [Mass/Vol]1.2 mg/dLCritically high0.2-1.0The [facility] HospitalCommymichigan medical center glad[facility] on above:Performed By: #### LIPA, CMP, CRISTIN, HSTROPN #### [facility] [address] [place] [address] Dr. Brielle HillCalcium [Mass/Vol]8.4 mg/dLCritically low8.5-10.1The [facility] HospitalCommymichigan medical center [facility] on above:Performed By: #### LIPA, CMP, CRISTIN, HSTROPN #### [facility] [address] [place] [address] Dr. Brielle HillChloride [Moles/Vol]104 mmol/RRmwwvu69-612Hiz [facility] Comment on above:Performed By: #### LIPA, CMP, CRISTIN, HSTROPN #### [facility] [address] [place] [address] Dr. Brielle HillCO2 [Moles/Vol]24.8 mmol/GZepxkw23.0-32.0The [facility] Comment on above:Performed By: #### LIPA, CMP, CRISTIN, HSTROPN #### [facility] [address] [address] [address] Brielle HillCreatinine [Mass/Vol]0.81 mg/dLNormal0.55-1.02[facility] HospitalComment on above:Performed By: #### LIPA, CMP, CRISTIN, HSTROPN #### [facility] [address] [address] [address] Brielle CrossGFR-AF WELSH>60Normal>=60The [facility] HospitalComment on above:Performed By: #### LIPA, CMP, CRISTIN, HSTROPN #### [facility] [address] [place] [address] Dr. Brielle CrossGFR-NON AF WELSH>60Normal>=60The [facility] HospitalComment on above:Performed By: #### LIPA, CMP, CRISTIN, HSTROPN #### [facility] [address] [place] [address] Dr. Brielle HillGlobulin (S) [Mass/Vol]3.1 g/dLNormalThe [facility]on HospitalComment on above:Performed By: #### LIPA, CMP, CRISTIN, HSTROPN #### [facility] [address] [place] [address] Dr. Brielle HillGlucose [Mass/Vol]100 mg/fALpdfnm28-096PjiFayette County Memorial Hospital Comment on above:Performed By: #### LIPA, CMP, CRISTIN, HSTROPN #### [facility] [address] [place] [address] Dr. Brielle HillPotassium [Moles/Vol]3.7 mmol/LNormal3.5-5.1[facility] Comment on above:Performed By: #### LIPA, CMP, CRISTIN, HSTROPN #### [facility] [address] [place] [address] Dr. Brielle HillProtein [Mass/Vol]6.9 g/dLNormal6.4-8.2[facility] Comment on above:Performed By: #### LIPA, CMP, CRISTIN, HSTROPN #### [facility] [address] [address] [address] Brielle HillSodium [Moles/Vol]137 mmol/OJyujxf401-672Ajz [facility] Comment on above:Performed By: #### LIPA, CMP, CRISTIN, HSTROPN #### [facility] [address] [address] [address] Brielle HillUrea nitrogen [Mass/Vol]9.0 mg/dLNormal7.0-18.0[facility] HospitalComment on above:Performed By: #### LIPA, CMP, CRISTIN, HSTROPN #### [facility] [address] [place] [address] Dr. Brielle Lynn nitrogen/Creatinine [Mass ratio]11.1 mg/mgNormalThe [facility] HospitalComment on above:Performed By: #### LIPA, CMP, CRISTIN, HSTROPN #### [facility] [address] [place] [address] Dr. Brielle Jackson, HIGH SENSITIVITYon [id number]<4.1Ezykbd0.0-51.3 [facility] on above:Result Comment: CUT-OFF POINTS HAVE BEEN ESTABLISHED BASED ON THE FOURTH UNIVERSAL DEFINITIONS OF MYOCARDIAL INFARCTION. THE UPPER REFERENCE LIMIT (URL) OF TROPONIN, DEFINED THE 99TH PERCENTILE OF cTnI DISTRIBUTION IN A REFERENCE POPULATION, HAS BEEN CONFIRMED THE DECISION THRESHOLD FOR PR DIAGNOSIS.Performed By: #### HSTROPN #### [facility] [address] [place] [address] Dr. Brielle HillHSTROP<4.9Nivtfv5.0-51.3[facility] on above: Result Comment: CUT-OFF POINTS HAVE BEEN ESTABLISHED BASED ON THE FOURTH UNIVERSAL DEFINITIONS OF MYOCARDIAL INFARCTION. THE UPPER REFERENCE LIMIT (URL) OF TROPONIN, DEFINED THE 99TH PERCENTILE OF cTnI DISTRIBUTION IN A REFERENCE POPULATION, HAS BEEN CONFIRMED THE DECISION THRESHOLD FOR PR DIAGNOSIS.Performed By: #### CBC #### [facility] [address] [place], [place] [id number] Dr. Brielle De Los Santos SINGLE QUAD RT UPPERon [id number] SINGLE QUAD RT UPPEREXAM: Right upper quadrant [...] Electronically authenticated by: MARK SWAN Date: 2021-11-09 15:26[facility] CenterXR ABD FLAT UP_PA Bill [id number] ABD FLAT UP_PA CHEXAM: XR ABD FLAT [...] Electronically authenticated by: LILLIAN GARCIA Date: 2021-11-09 12:46[facility] CenterCT ABDOMEN PELVIS WO CONTRASTon [id number] ABDOMEN PELVIS WO CONTRASTEXAMINATION: CT OF THE [...] Signed by: Edvin Kaur MD 11/23/19 Final resultNoThe Jewish HospitalCult,Urineon [id number],UrineSpecimen Description .CLEAN CATCH URINE Special Requests NOT REPORTED Culture NO SIGNIFICANT GROWTH Report Status FINAL 11/23/2019[facility] Medical CenterComment on above: Performed By: #### URC #### [facility] [employer] [address] [place] [address] Maintenance Representative: Rajan Bermudez MD [facility] [address] [place] [address] Maintenance Representative: Shyam Max MDBasic Metab w/rfx MGon 11-22-2019(cont.)Normal [facility] CenterComment on above:Result Comment: Average GFR for 50-59 years old: 93 mL/min/1.73sq m Chronic Kidney Disease: <60 mL/min/1.73sq m Kidney failure: <15 mL/min/1.73sq m eGFR calculated using average adult body mass. Additional eGFR calculator available at: http://www.[employer]/multiple_crcl_2012.htmPerformed By: #### HCG, BMPX, CDP #### [address] [place], [place] [id number] Maintenance Representative: Shyam Max MDAnion gap [Moles/Vol]12 mmol/LNormal9-17[facility] Medical CenterComment on above:Performed By: #### HCG, BMPX, CDP #### [address] [place], [place] [address]83 Maintenance Representative: MONROE LeiN/CRE Kaysf63Fqmojg8-92Crcir [facility] Comment on above:Performed By: #### HCG, BMPX, CDP #### [address] [place], [place] [id number] Maintenance Representative: Shyam Max MDCalcium [Mass/Vol]8.9 mg/dLNormal8.6-10.4[facility] Medical CenterComment on above:Performed By: #### HCG, BMPX, CDP #### [address] [place] [address] Maintenance Representative: ERIC Leihloride [Moles/Vol]100 mmol/NVnnhnv82-928LvlkvTrinity Health System Twin City Medical CenterComment on above:Performed By: #### HCG, BMPX, CDP #### [address] [place], [place] [address]83 Maintenance Representative: Shyam Max MDCO2 [Moles/Vol]25 mmol/EUipikw59-17Dpamk [facility] HospitalComment on above:Performed By: #### HCG, BMPX, CDP #### [address] [place] [address] Maintenance Representative: ERIC Leireatinine [Mass/Vol]0.66 mg/dLNormal0.50-0.90 [facility] HospitalComment on above:Performed By: #### HCG, BMPX, CDP #### [address] [place] [address] Maintenance Representative: Shyam Max MDGFR, Amer>60Normal>60MerBarberton Citizens Hospital Hospital Comment on above:Performed By: #### HCG, BMPX, CDP #### [address] [place] [address] Maintenance Representative: Shyam Max MDGFR,non Amer>60Normal>60Mer[facility] HospitalComment on above:Performed By: #### HCG, BMPX, CDP #### [address] [place], [facility]83 Maintenance Representative: Shyam Max MDGlucose [Mass/Vol]140 mg/gJZpgd59-94Ctrkl [place] HospitalComment on above:Performed By: #### HCG, BMPX, CDP #### [address] [place], [facility]83 Maintenance Representative: JODY Leiotassium [Moles/Vol]4.1 mmol/LNormal3.7-5.3Mavita health system ont[facility] hospitaly [place] HospitalComment on above:Performed By: #### HCG, BMPX, CDP #### [address] [place] [address] Maintenance Representative: ARTURO Leiodium [Moles/Vol]137 mmol/RBziltk337-375Kyiks [facility] HospitalComment on above:Performed By: #### HCG, BMPX, CDP #### [address] [place], [place] [address]83 Maintenance Representative: ARTURO Leitaging:NormalMercy Acosta HospitalComment on above:Result Comment: Stage 1: Some kidney damage normal GFR Stage 2: Mild kidney damage GFR 60-89 Stage 3: Moderate kidney damage GFR 30-59 Stage 4: Severe kidney damage GFR 15-29 Stage 5: Severe kidney damage GFR <15 ESRD - chronic treatment by dialysis or transplantPerformed By: #### HCG, BMPX, CDP #### [facility] [address] [place] [address] Maintenance Representative: Shyam Max MDUrea nitrogen [Mass/Vol]11 mg/dLNormal6-20[facility] Medical CenterComment on above:Performed By: #### HCG, BMPX, CDP #### [facility] [address] [place] [address] Maintenance Representative: Shyam Max MDVeterans Administration Medical Center Metabolic Panel w/ Reflex to MGon [id number] gap [Moles/Vol]12 mmol/L9 - 17 mmol/LMSt. Elizabeth Hospital, KYBun/Cre Gezek80LxbssKettering Memorial Hospital, KYCalcium [Mass/Vol]8.9 mg/dL8.6 - 10.4 mg/dLKettering Memorial Hospital, KYChloride [Moles/Vol]100 mmol/L98 - 107 mmol/[facility], [place] CO2 [Moles/Vol]25 mmol/L20 - 31 mmol/[facility] [place], KYCreatinine [Mass/Vol] 0.66 mg/dL0.5 - 0.9 mg/dLKettering Memorial Hospital, KYGFR >60>60 mL/min [facility], KYGFR Non->60>60 mL/minKettering Memorial Hospital, [place] Glucose [Mass/Vol]140 mg/bQKjdg58 - 99 mg/dLKettering Memorial Hospital, KYInterpretation and review of laboratory resultsAbnormalKettering Memorial Hospital, KYPotassium [Moles/Vol]4.1 mmol/L3.7 - 5.3 mmol/LMRegency Hospital [facility]- [place], KYSodium [Moles/Vol]137 mmol/L135 - 144 mmol/[facility]- [place], KYUrea nitrogen [Mass/Vol]11 mg/dL6 - 20 mg/dLTuscarawas Hospital- [place], WACBC Auto Differentialon [id number] (Bld) [#/Vol]0.00 10*3/uLTuscarawas Hospital- [place], KYBasophils/100 WBC (Bld)0 %0 - 2 %[facility], KYDifferential TypeNOT REPORTEDTuscarawas Hospital- [place], KYEosinophils (Bld) [#/Vol]0.18 10*3/[facility]- [place], KYEosinophils/100 WBC (Bld)2 %1 - 4 %[facility], KYErythrocyte distribution width (RBC) [Ratio]17.8 %High11.8 - 14.4 %[facility]- [place], KYHematocrit (Bld) [Volume fraction]38.9 %36.3 - 47.1 %[facility], KYHemoglobin (Bld) [Mass/Vol]11.3 g/dLLow11.9 - 15.1 g/dLKettering Memorial Hospital, KYImmature granulocytes (Bld) [#/Vol]0 %0[facility]- [place], [place] Immature granulocytes (Bld) [#/Vol]0.00 10*3/[facility]- [place], [place] Interpretation and review of laboratory resultsAbnormalKettering Memorial Hospital, [place] Lymphocytes (Bld) [#/Vol]3.96 10*3/uLHocking Valley Community Hospital, KYLymphocytes/100 WBC (Bld)43 %24 - 43 %[facility]- [place], KYMCH (RBC) [Entitic mass]18.0 pgLow25.2 - 33.5 pgKettering Memorial Hospital, KYMCHC (RBC) [Mass/Vol]29.0 g/dL28.4 - 34.8 g/dLKettering Memorial Hospital, KYMCV (RBC) [Entitic vol]61.8 fLLow82.6 - 102.9 fLKettering Memorial Hospital, KYMonocytes (Bld) [#/Vol]0.46 10*3/uLTuscarawas Hospital- [place], KYMonocytes/100 WBC (Bld) 5 %3 - 12 %[facility], KYMorphology Flex (Bld) [Interp]MICROCYTOSIS PRESENT [facility], JAYLENEPlatelet mean volume (Bld) [Entitic vol]9.6 fL8.1 - 13.5 fL [facility], JAYLENEPlatelets (Bld) [#/Vol]NOT REPORTEDKettering Memorial Hospital, [place] Platelets (Bld) [#/Vol]375 10*3/uLKettering Memorial Hospital, WARBC (Bld) [#/Vol]6.29 10*6/uLHigh3.95 - 5.11 m/[facility], WARBC morphology finding Nom (Bld) NOT REPORTEDKettering Memorial Hospital, WASegmented neutrophils/100 WBC (Bld)50 %36 - 65 % [facility], WASegs Absolute4.60[facility], WAWBC (Bld) [#/Vol]0.0 10*3/uL0.0 per 100 WBCKettering Memorial Hospital, WAWBC (Bld) [#/Vol]9.2 10*3/uLKettering Memorial Hospital, KYWBC MorphologyNOT REPORTEDKettering Memorial Hospital, WACBC with Diffon [id number]. Basophil0.00 k/uLNormal0.00-0.20[facility] HospitalComment on above:Performed By: #### HCG, BMPX, CDP #### [address] [place] [address] Maintenance Representative: Flynn Lei.Imm.Granulocyte0.00 k/uLNormal0.00-0.30[facility] HospitalComment on above:Performed By: #### HCG, BMPX, CDP #### [facility] [address] [place] [address] Maintenance Representative: Flynn Lei.Neutrophil (Seg)4.60 k/uLNormal1.50-8.10[facility] HospitalComment on above:Performed By: #### HCG, BMPX, CDP #### [address] [place] [phone] Maintenance Representative: Shyam Max MDBasophils/100 WBC (Bld)0 %Normal0-2MercParkview Health Montpelier Hospital HospitalComment on above:Performed By: #### HCG, BMPX, CDP #### [facility] [address] [place], [place] [address] Maintenance Representative: Shyam Max MDEosinophils (Bld) [#/Vol]0.18 10*3/uLNormal 0.00-0.44[facility] HospitalComment on above:Performed By: #### HCG, BMPX, CDP #### [address] [place] [address] Maintenance Representative: NIGEL Leiosinophils/100 WBC (Bld)2 %Normal1-4[facility] HospitalComment on above:Performed By: #### HCG, BMPX, CDP #### [address] [place], [place] [address] Maintenance Representative: Shyam Max MDImmature granulocytes (Bld) [#/Vol]0 %Normal0 [facility] Medical CenterComment on above:Performed By: #### HCG, BMPX, CDP #### [address] [place] [address] Maintenance Representative: Shyam Max MDLymphocytes (Bld) [#/Vol]3.96 10*3/uLHigh 1.10-3.70[facility] HospitalComment on above:Performed By: #### HCG, BMPX, CDP #### [address] [place], [facility]83 Maintenance Representative: Winnie Leimphocytes/100 WBC (Bld)43 %Feihre15-27Slpwz [facility] HospitalComment on above:Performed By: #### HCG, BMPX, CDP #### [facility] [address] [place], [facility]83 Maintenance Representative: GONZALO Leionocytes (Bld) [#/Vol]0.46 10*3/uLNormal 0.10-1.20[facility] Medical CenterComment on above:Performed By: #### HCG, BMPX, CDP #### [address] [place], [facility]83 Maintenance Representative: GONZALO Leionocytes/100 WBC (Bld)5 %Normal3-12[facility] Medical CenterComment on above:Performed By: #### HCG, BMPX, CDP #### [address] [place] [address] Maintenance Representative: GONZALO Leiorphology Flex (Bld) [Interp]MICROCYTOSISNormal [facility] CenterCommymichigan medical center gladwin on above:Result Comment: PRESENTPerformed By: #### HCG, BMPX, CDP #### [address] [place], [place] [address] Maintenance Representative: Shyam Max MDNeutrophil (Seg)50 %Hftsks11-47Xspel [facility] HospitalComment on above:Performed By: #### HCG, BMPX, CDP #### [address] [place], [facility]83 Maintenance Representative: Shyam Max MDErythrocyte distribution width (RBC) [Ratio]17.8 %High11.8-14.4[facility] Medical CenterComment on above:Performed By: #### HCG, BMPX, CDP #### [address] [place], [facility]83 Maintenance Representative: Shyam Max MDHematocrit (Bld) [Volume fraction]38.9 %Normal 36.3-47.1MUniversity Hospitals TriPoint Medical CenterComment on above:Performed By: #### HCG, BMPX, CDP #### [address] [place], [facility]83 Maintenance Representative: Shyam Max MDHemoglobin (Bld) [Mass/Vol]11.3 g/dLLow11.9-15.1 [facility] HospitalComment on above:Performed By: #### HCG, BMPX, CDP #### [address] [place], [facility]83 Maintenance Representative: LAURY Lei (RBC) [Entitic mass]18.0 pgLow25.2-33.5[facility] HospitalComment on above:Performed By: #### HCG, BMPX, CDP #### [address] [place], [place] [address] Maintenance Representative: LAURY LeiC (RBC) [Mass/Vol]29.0 g/nHUjlxfh08.4-34.8 [facility] HospitalComment on above:Performed By: #### HCG, BMPX, CDP #### [address] [place], [facility]83 Maintenance Representative: DYANA Lei (RBC) [Entitic vol]61.8 fLLow82.6-102.9[facility] HospitalComment on above:Performed By: #### HCG, BMPX, CDP #### [address] [place], [facility]83 Maintenance Representative: Shyam Max MDNRBC Automated0.0 per 100 WBCNormal0.0[facility] HospitalComment on above:Performed By: #### HCG, BMPX, CDP #### [address] [place], [facility]83 Maintenance Representative: Robin Lei mean volume (Bld) [Entitic vol]9.6 fL Normal8.1-13.5[facility] HospitalComment on above:Performed By: #### HCG, BMPX, CDP #### [address] [place], [facility]83 Maintenance Representative: Anabel Lei (Bld) [#/Vol]375 10*3/wERjkmyf033-667 [facility] HospitalComment on above:Performed By: #### HCG, BMPX, CDP #### [facility] [address] [place] [address] Maintenance Representative: XI Lei (Bld) [#/Vol]6.29 10*6/uLHigh3.95-5.11[facility] [place] HospitalComment on above:Performed By: #### HCG, BMPX, CDP #### [address] [place] [address] Maintenance Representative: ZOILA Lei (Bld) [#/Vol]9.2 10*3/uLNormal3.5-11.3MShelby Memorial Hospital HospitalComment on above:Performed By: #### HCG, BMPX, CDP #### [address] [place] [address] Maintenance Representative: Miguel Angel Lei PerformedNOT REPORTEDNormalMercy [place] HospitalComment on above:Performed By: #### HCG, BMPX, CDP #### [address] [place] [address] Maintenance Representative: Anabel Lei (Bld) [#/Vol]NOT REPORTEDNormalMercy [place] HospitalComment on above:Performed By: #### HCG, BMPX, CDP #### [address] [place] [address] Maintenance Representative: XI Lei morphology finding Nom (Bld)NOT REPORTED NormalOhiohealth Marion General Hospital HospitalComment on above:Performed By: #### HCG, BMPX, CDP #### [address] [place] [address] Maintenance Representative: ZOILA Lei MorphologyNOT REPORTEDNormalMercy [place] HospitalComment on above:Performed By: #### HCG, BMPX, CDP #### [facility] [address] [place] [address] Maintenance Representative: PREMA Lei Qualitative, Serumon [id number] Qual NegativeNEGATIVECollingswood, KYComment on above:Specimens with hCG levels near the threshold of the test (25 mIU/mL) may give a negative or indeterminate result. In such cases, another test should be performed with a new specimen in 48-72 hours. If early is suspected clinically in this setting, correlation with quantitative serum b-hCG level is suggested. [facility] has confirmed the use of plasma for this test. This has not been cleared or approved by the U.S. Food and Drug Administration. The FDA has determined that such clearance is not necessary. HCG Screen, Blood [id number] QnNegativeNormalReg[facility] Hospital [facility] Comment on above:Result Comment: Specimens with hCG levels near the threshold of the test (25 mIU/mL) may give a negative or indeterminate result. In such cases, another test should be performed with a new specimen in 48-72 hours. If early is suspected clinically in this setting, correlation with quantitative serum b-hCG level is suggested. [facility] has confirmed the use of plasma for this test. This has not been cleared or approved by the U.S. Food and Drug Administration. The FDA has determined that such clearance is not necessary.Performed By: #### HCG, BMPX, CDP #### [facility] [address] [place] [address] Maintenance Representative: GONZALO Leietabolic Panelon [id number]/1.73 sq M predicted among non-blacks MDRD (S/P/Bld) [Vol rate/Area][place], [place] Comment on above:Stage 1: Some kidney [...] body mass. Additional eGFR calculator available at: http://www.[employer]/multiple_crcl_2012.htm Microscopic Urinalysison [id number], UANOT REPORTEDNoneMeProvidence Hospital- [place], KYBacteria, UATRACEAbnormalNoneMeProvidence Hospital- [place], KYCasts UANOT REPORTED/LPF [facility] [place], KYCrystals, UANOT REPORTEDNone /[facility] [place], [place] Epithelial Cells UA10 TO 20[facility] [place], KYMucus, UANOT REPORTEDNonMercy Health St[facility] [place], KYOther Observations UANOT REPORTEDNOT REQ.[facility], KYRBC (U) [#/Vol]0 TO 2MOhioHealth Doctors Hospital [place], KYRenal Epithelial, UANOT REPORTED0 /[facility] [place], KYTrichomonas, UANOT REPORTEDNon[facility], KYWBC, UA5 TO 10 [facility], KYYeast, UANOT REPORTEDNonMercy Health St[facility] [place], [place]-[facility] [place], KYOtheron [id number] and review of laboratory resultsAbnormal [facility], KYUA w/Reflex Cultureon [id number] Acid,UrNegative NormalNEGTrinity Health System Twin City Medical CenterComment on above:Performed By: #### ZELDA KEENO #### [facility] [address] [place] [address] Maintenance Representative: Shyam Max MDBilirubin, SemiQt,UrNegativeNormalNEGTrinity Health System Twin City Medical CenterComment on above:Performed By: #### CHRISTIANXZELDAO #### [facility] [address] [place] [address] Maintenance Representative: ERIC Leiharry s. [facility] (U)YELLOWNoMercy Memorial Hospital Comment on above:Performed By: #### CHRISTIANXALANISICAO #### [facility] [address] [place] [address] Dr[address] [place], [facility]83 Maintenance Representative: Shyam Max MDGlucose Ql (U)NegativeNormalNEGTrinity Health System Twin City Medical CenterComment on above:Performed By: #### UAX, UMICAO #### [facility] [address] [place] [address] Dr[address] [place], [place] [address]83 Maintenance Representative: Shyam Max MDHemoglobin, Ur1+AbnormalNEGTrinity Health System [facility] Center Comment on above:Performed By: #### UAX, UMICAO #### [address] [place], [facility]83 Maintenance Representative: Shyam Max MDLeukocyte esterase Test strip Ql (U)TRACEAbnormal NEGTrinity Health System Twin City Medical CenterComment on above:Performed By: #### UAX, UMICAO #### [address] [place], [facility]83 Maintenance Representative: Shyam Max MDNitrite,UrNegativeNormBrown Memorial Hospital Comment on above:Performed By: #### OSMANI UMICAO #### [address] [place], [facility]83 Maintenance Representative: Shyam Max [facility] HospitalH (U)6.5 [pH]Normal5.0-9.0[facility] Comment on above:Performed By: #### OSMANI, UMICAO #### [facility] [address] [place] [address] Dr[address] [place], [facility]83 Maintenance Representative: JODY Leirotein Ql (U)NegativeNormalRegency Hospital Cleveland WestComment on above:Performed By: #### UAX, UMICAO #### [facility] [address] [place], [place] [address]83 Maintenance Representative: ARTURO Leipecific gravity (U) [Rel density]1.020Normal 1.010-1.020[facility] HospitalComment on above:Performed By: #### UAX, UMICAO #### [facility] [address] [place] [address] Maintenance Representative: Shyam Max MDBrea Community HospitalalCGrand Lake Joint [facility] Comment on above:Performed By: #### UAX, UMICAO #### [facility] [address] [place] [address] Maintenance Representative: Flory Lei,UrNormalNormalTriHealth Bethesda North HospitalComment on above:Performed By: #### UAX, UMICAO #### [facility] [address] [place] [address] Maintenance Representative: Shyam Max [facility] Comment on above:Performed By: #### UAX, UMICAO #### [facility] [address] [place] [address] Maintenance Representative: Shyam Max MDUrinalysis Reflex to Cultureon 11-22-2019 Bilirubin UrineNegativeNEGATIVEMercy Health- [place], KYColor, UAYELLOWYELLOWMercy Health- [place], KYGlucose, UrNegativeNEGATIVEMercy Health- [place], KYKetones Ql (U) NegativeNEGATIVEMercy Health- [place], KYLeukocyte esterase Test strip Ql (U)TRACE AbnormalNEGATIVEMercy Health- [place], KYNitrite, UrineNegativeNEGATIVEMercy Health- [place], KYpH, UA6.5[facility]- [place], KYProtein (U) [Mass/Vol]NegativeNEGATIVEMercy Health- [place], KYSpecific [place], UA1.020[facility]- [place], KYTurbidity UACLEAR CLEARMercy Health- [place], KYUrinalysis CommentsNOT REPORTEDMercy Health- [place], [place] Urine Hgb1+AbnormalNEGATIVEMercy Health- [place], KYUrobilinogen, UrineNormalNormal [facility]- [place], KYUrinalysis,Microon 11-22-2019-----NormalMercy Ac[place] HospitalComment on above:Performed By: #### UAX, UMICAO #### [address] [place] [address] Maintenance Representative: Shyam Max MDBacteria LM.HPF (Urine sed) [#/Area]TRACEAbnormal NONEMercy Acosta HospitalComment on above:Performed By: #### UAX, UMICAO #### [address] [place] [address] Maintenance Representative: Shyam Max MDEpithelial cells LM.HPF (Urine sed) [#/Area]10 TO 02Yeguss0-25Rllbe [place] HospitalComment on above:Performed By: #### UAX, UMICAO #### [address] [place] [id number] Maintenance Representative: JUANY LeiBC (U) [#/Vol]0 TO 3Qtxnxy5-0Opmqy Acosta HospitalComment on above:Performed By: #### UAX, UMICAO #### [address] [place] [id number] Maintenance Representative: Shyam Max MDWBC (U) [#/Vol]5 TO 53Ckenqx3-3Cbdeo Acosta HospitalComment on above:Performed By: #### UAX, UMICAO #### [address] [place] [address] Maintenance Representative: Susan Lei sediment LM Ql (Urine sed)NOT REPORTED NormalNONEMercy Acosta HospitalComment on above:Performed By: #### UAX, UMICAO #### [address] [place] [id number] Maintenance Representative: Yasmin Lei LM.LPF (Urine sed) [#/Area]NOT REPORTED NormalMercy Acosta HospitalComment on above:Performed By: #### UAX, UMICAO #### [address] [place] [address] Maintenance Representative: ERIC Leirystals LM Nom (Urine sed)NOT REPORTEDNormalNONE [facility] HospitalComment on above:Performed By: #### UAX, UMICAO #### [facility] [address] [place] [address] Maintenance Representative: Shyam Max MDEpithelial, RenalNOT GJKCHNMJCogugd8Nqlyw Acosta HospitalComment on above:Performed By: #### UAX, UMICAO #### [facility] [address] [place] [address] Maintenance Representative: GONZALO Leiucus StrandsNOT REPORTEDNormalNONEMey Acosta HospitalComment on above:Performed By: #### UAX, UMICAO #### [facility] [address] [place] [address] Maintenance Representative: Shyam Max MDOther ObservationsNOT REPORTEDNormalNREQLakehealth Beachwood Medical Centercy Acosta HospitalComment on above:Performed By: #### UAX, UMICAO #### [facility] [address] [place] [address] Maintenance Representative: Shyam Max MDTrichomonasNOT REPORTEDNormalNONEMey Acosta HospitalComment on above:Performed By: #### UAX, UMICAO #### [facility] [address] [place] [address] Maintenance Representative: Shyam Max MDYeast LM Ql (Urine sed)NOT REPORTEDNormalNONE [facility] HospitalComment on above:Performed By: #### UAX, UMICAO #### [facility] [address] [place] [address] Maintenance Representative: Shyam Max MD Vital Signs Date TimeVital SignValuePerforming JjbgleijqRduqjbia41-94-9210 13:13-0400Body cmCos[facility]05-06-2024 13:13-0400Body mass index (BMI) [Ratio]28.3 kg/d9HekaffbwwCoshocton Regional Medical Center05-06-2024 13:130400Body sxpemb81.12 kgCoshocton Regional Medical Center05-06-2024 13:130400Diastolic blood boxkdxof94 mm[Hg][facility] 11-05-2023 13:130400Heart rate64 /[facility] 11-05-2023 13:130400Respiratory rate16 /[facility] 11-05-2023 13:137407BhL5% (BldA) [Mass fraction]100 %[facility]05-06-2024 13:040Systolic blood gghfjaiy027 mm[Hg][facility]12-21-2021 14:00-0500Body lokalb956.64 cmThomas Olexa Other [employer] Other 12-21-2021 14:00-0500Body mass index (BMI) [Ratio] 24.53 kg/b8Csfiyg Olexa Other [employer] Other 12-21-2021 14:00-0500Body fiqfpm65.95 kgThomas Olexa Other [employer] Other 11-15-2021 11:15-0500Body ltzecc855.64 cmThomas Olexa Other [employer] Other 11-15-2021 11:15-0500Body mass index (BMI) [Ratio] 24.69 kg/d1Bmnwbp Olexa Other [employer] Other 11-15-2021 11:15-0500Body jukbns19.4 kgThomas Olexa Other [employer] Other 10-28-2021 14:45-0400Body qwwjxo265.64 cmThomas Olexa Other [employer] Other 10-28-2021 14:45-0400Body mass index (BMI) [Ratio] 25.05 kg/k1Rrkvpd Olexa Other [employer] Other 10-28-2021 14:45-0400Body cazycz08.4 kgThomas Olexa Other [employer] Other 05-23-2020 15:17-0400BP Jegqyvarx08 mm[Hg][facility], DE65-40-1410 15:17-0400BP Msxflitw937 mm[Hg][facility] Hospital[facility] FB24-00-8192 15:17-0400Pulse (Heart Rate)63 /min [facility] HospitalSportsManiasShorePoint [facility] [place] EZ31-32-2802 15:17-0400Pulse Nvvzdvbg47 % [facility] II55-53-2425 15:17-0400Respiratory Rate14 /min [facility] DW68-85-5943 10:17-0400BMI (Body Mass Index) 26.13 kg/y7KptgfspkoO'Connor HospitalSportsManiasShorePoint [facility] [place] ZM72-13-6084 10:17-0400Body Ojpbpneimww59.3 [degF][facility] HospitalSportsManiasSh[facility]Point [facility] [place] RH90-86-9997 10:17-0400 Body jriryh77.22 kgAlexandGreater Baltimore Medical CenterSportsManiasShorePoint Health [facility] [place] OH94-48-9948 10:17-0400 Hmsynh949.1 cmAlexSan Ramon, [place] Encounters Encounter DateEncounter TypeCare ProviderFacilityStart: 11-05-2023 End: 10-69-3655hajclduqvjXwvwvugsaParkwood Hospital Work Phone: Start: 11-05-2023 End: 13-49-8070Aiucluq encounter procedureWakemed North Hospital Physician GroupR[facility] Work Phone: Start: 10-03-2023 End: 18-58-2276ypkubmzzwwNRPPE A PETITTINot AvailableStart: 21-96-5005Joq- patient / Non-visitWakemed North Hospital Physician Group-[facility] Work Phone: Start: 05-16-2023 End: 49-22-4769tsgquwtxagSVLPVBQY E RINKESNot AvailableStart: 04-26-2023 End: 87-46-8433zbdxnlsrxmYN Dino Gomez Work Phone: [facility] Work Phone: Start: 04-26-2023 End: 30-20-3693Qywlhnk encounter procedureMD Dino Gomez Work Phone: [facility] [address] Work Phone: start: 06-21-2022 End: 09-99-6872ikvcybktgyLULCQG CRAMERFacility:Y5Izflg: 12-28-2021 End: 35-88-4513zryxtquxmxZQ MARK NILLFacility:N9Oyybc: 81-54-1234tzdqqxzemhGG MARK NILLFacility:F7Jmmxd: 48-11-7861yodyvanrxoVM MARK NILLFacility:H1 Start: 11-16-2021 End: 74-74-6350cjwpazunxsWX DINO HOYFacility:P0Yrkjw: 11-10-2021 End: 36-77-2959uszznjkorxRA DINO HOYFacility:U3Fyrtl: 11-09-2021 End: 40-54-5068fyrxpeasviOP DINO HOYFacility:I9Nbcvw: 06-21-2021 End: 70-55-0893rfvlqpswvmEkqcho Olexa Other [employer] Other Start: 78-44-5833Owycun follow up visit related to original pxThomas OlexaROSSYG Desean GalvezevueStart: 05-16-2021 End: 15-40-7511fqhqsjyzjsSkvveg Olexa Other [employer] Other Start: 38-26-5760Jvmkwv follow up visit related to original pxThomas OlexaFPG Desean OrthopedicsStart: 05-10-2021 End: 56-03-7580ngkmqvnqkmBbduyv Olexa Other [employer] Other Start: 46-51-6029Kryzkdvrq encounterThomas OlexaFPG Desean OrthopedicsStart: 05-02-2021 End: 45-01-6654voxqmgkcddDwbqwe Olexa Other [employer] Other Start: 07-64-2515Kegjphwet encounterThomas OlexaFPG [facility] OrthopedicsStart: 76-28-1315Ompwguple for other preprocedural examinationThomas OlexaFPG [facility] Ortho BellevueStart: 03-82-1056Rdrgnl outpatient visit 25 minutesThomas OlexaFPG [facility] BellevueStart: 11-22-2019 End: 25-21-5788Jpmipcmwh department patient visitALEXANDER A MIRAMemorial Health Systemtart: 11-22-2019 End: 45-59-1068Zwbktyfim department patient visitAlexander A Taoc Work Phone: [facility] EDComment on above:Flank pain (Primary Dx) Procedures DateProcedureProcedure DetailPerforming ClinicianStart: 20-97-0919OKIAW OXIMETRY [facility] CENTERROVStart: 96-18-4287Ju abdomen & pelvis w/o contrast material [facility] CENTERROVStart: 18-67-5217Flfsl count complete auto&auto difrntl wbc [facility] HEALTH CENTERROtart: 16-09-9583Jnyadsomvlgpr metabolic panelALEXANDER [facility] Start: 07-09-7558Sxhjgafhajka chorionic qualitativeALEXANDER [facility]FOLK STATE HOSPITALtart: 84-75-8766Feqxscp bacterial quanttative colony count urineALEXANDER BOBROVStart: 79-88-2619Lbmogdlxsw microscopic onlyALEXANDER BOBROVStart: 15-24-7423Arnvt dip stick/tablet rgnt auto w/o microscopyALEXANDER BOBROVStart: 47-02-5018Wh abdomen & pelvis w/o contrast materialAlexander A [employer] Work Phone: Start: 28-18-8462ATMZO METABOLIC PANEL W/ REFLEX TO MG FOR LOW KAlexander A [employer] Work Phone: Start: 17-26-6796Idjql count complete auto&auto difrntl wbcAlexander A [employer] Work Phone: Start: 32-32-4073Xymeqtotakuy chorionic qualitative Dontae A [employer] Work Phone: Start: 41-56-9388Mfuqbqywfu microscopic onlyAlexander A [employer] Work Phone: Start: 54-61-8624Suldz dip stick/tablet rgnt auto w/o microscopyAlexander A [employer] Work Phone: Plan of Treatment DateCare ActivityDetailAuthorStart: 35-60-9899Vaghqwlyx vaccinationFlu vaccine (Season Ended)[facility]: 17-79-6836Krumxmtvk for malignant neoplasm of breastBreast cancer screenSouthview Medical Center: 2018 Screening for malignant neoplasm of colonColon cancer screen colonoscopySouthview Medical Center: 32-98-3325Ksnfarru Vaccine (1 of 2)Shingles Vaccine (1 of 2)[facility]: 34-18-7495Ocdaduvw screenDiabetes [facility]: 30-91-8235Yksxs panelLipid screenSouthview Medical Center: 21-02-4027Hwofxxmgh for malignant neoplasm of cervixCervical cancer screenSouthview Medical Center: 30-35-5623FNbM/Tdap/Td vaccine (1 - Tdap)DTaP/Tdap/Td vaccine (1 - Tdap)[facility]: 70-99-9008BIY screeningHIV screen [facility] HospitalJAYLENECT ABDOMEN PELVIS WO CONTRAST Additional Contrast? NoneCT ABDOMEN PELVIS WO CONTRAST Additional Contrast? None Imaging STAT 11/22/2019 10:55 AM AZRAProMedica Bay Park HospitalJAYLENE End: 77-78-5141Krzlwyy, UrineCulture, Urine Microbiology STAT One Time for 1 Occurrences starting 11/22/2019 until 11/22/2019[facility] HospitalJAYLENEComment on above:One Time for 1 Occurrences starting 11/22/2019 until 11/22/2019Culture, UrineCulture, Urine Microbiology STAT 11/22/2019 10:15 AM [facility] Immunizations Immunization DateImmunizationNotesCare IacqpsgsWfuymfle14-26-8345RSPPY-96 Isabel Moon (Pfizer)MD Dino Gomez Work Phone: [facility]09-02-2021COVID-19 Isabel Moon (Michael)MD Dino Gomez Work Phone: [facility]03-21-2013TB Test Lillian Olexa Other [employer] Other [id number] TestThomas Olexa Other [employer] Other Payers DatePayer CategoryPayerPolicy [id number]-jau [id number] .1.469549.3.57[id number] 2..1.120575.3.579.[id number] 2.1.298687.3.57[id number] 2.16.840.1.806680.3.579.2.725 [id number] 2..0.1.407170.3.579.[id number] 2..840.1.036598.3.579.2.74531-91-9356Gxggltd0634013 2..0.1.098101.3.57[id number] 2..0.1.192896.3.579.2.189408-31-6158Wmyeuod14026 2..0.1.302672.3.579.2.877436-98-3767Mdaw Cross [facility] Memorial [id number] 2.[id number] 2zr7142i-4208-17cy-j35b-4tt162b1x8k6 [id number] 2.0.1.39596[id number] 0606983x-635f-69us-ow38-qakgv7c0042h Social History DateTypeDetailFacilityStart: 11-22-2019 End: 25-26-1325Qsjkqcn smoking status NHISNever smokerSelect Medical TriHealth Rehabilitation Hospitaltart: 18-59-0258Opakpnn intakeEx-drinker (finding)[facility] RocketskatesMERCY [facility], [place] Sex Assigned At BirthNot on fileKettering Memorial Hospital, [place]Exposure to SARS-CoV-2 (event)Unable to assessKettering Memorial Hospital, KYSex Assigned At BirthSex Assigned At [facility] HospitalNocrossroads regional medical center [employer] Other Start: 45-10-6161Qsj Assigned At [facility] HospitalFeEast [place] [facility] Medical Equipment Procedure CodeEquipment CodeEquipment Original TextEquipment IdentifierDates Arthroscopy, shoulderTendon/ligament bone anchor, non-bioabsorbable ()[id number] FDAStart: 05-04-2021 Clinical Note 12-28-2021 Note Date & AvjuZmsbSrawofpm85-56-1166 NoteThe [place], [place] NAME: CARLOS CISNEROS DATE OF : MEDICAL REC#: [id number] 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 12/30/2021 16:27:00[facility] Evaluation note 06-21-2021 Note Date & FdivBiyeFbhuzdfu29-22-9205 Evaluation note* Encounter Date Diagnosis Assessment Notes [...] use of heat to help with motion. [employer] Other Evaluation note 05-16-2021 Note Date & ChizHameTrtkhzeb76-32-5557 Evaluation note* Encounter Date Diagnosis Assessment Notes [...] of ice and heat for pain relief. [employer] Other History general Narrative - Reported 05-04-2021 Note Date & SzhyExfqCspytrta75-56-5931 History general Narrative - Reported* Type Description Date Surgical History lymph node resection right shou lder Surgical Historyright shoulder arthroscopy with supraspinatus rotator cuff repair, subacromial zmoorzniumftm24/3/21 [employer] Other Evaluation note 05-02-2021 Note Date & NbugVeoqReyizrhp74-99-8177 Evaluation note* Encounter Date Diagnosis Assessment Notes Treatment Notes Treatment Clinical Notes May, Other specified postprocedural s tates (ICD-10 - Z98.890) [employer] Other Evaluation note 04-28-2021 Note Date & RclrNfjxPteuwgtt42-80-8322 Evaluation note* Encounter Date Diagnosis Assessment Notes [...] of infection, hardware pullout, cuff repair failure, 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 pain and stiffness are well known problems [...] - M25.511) Apr,re-op exam (ICD-10 - Z01.818) [employer] Other Evaluation note Note Date & TypeNoteFacilityEvaluation noteNo InformationNort [employer] Other Evaluation note Note Date & TypeNoteFacilityEvaluation noteNo assessment information available [facility] Work Phone: History general Narrative - Reported Note Date & TypeNoteFacilityHistory general Narrative - Reported* Type Description Date Surgical History lymph node resection right jason sandoval [employer] Other Discharge Instructions * Instructions* Dontae [place] [...] sent through Care Everywhere. * Flank Pain (Solomon Islander) documented in this encounter Assessments Diagnosis Flank pain Abdominal pain, unspecified site Advance Directives No Advanced Directives Records FoundDocuments on File TypeDate RecordedPatient RepresentativeExplanationAdvance Directives and Living WillPower of Telegraph Repeater Mechanic Advance Directive Response Recorded Date/ Time Advance [...] section and content) DATE CREATED AUTHOR 11/28/2019 [facility] DATE CREATED AUTHOR AUTHOR'S ORGANIZ ATION 07/01/2022 [facility] DATE CREATED AUTHOR AUTHOR'S ORGANIZ ATION 06/12/2023 [facility] DATE CREATED AUTHOR AUTHOR'S ORGANIZ ATION 10/05/2023 [facility] DATE CREATED AUTHOR AUTHOR'S ORGANIZ ATION 11/06/2024 [facility] Care Teams (unrecognized sec tion and [...] BE BASED ON THE PRIMARY CLINICAL RECORDS. [employer] [facility]. provides no warranty or guarantee of the accuracy or completeness of information in this document.
== END 2025-05-18 09:18 | disposition home or self-care (01) ==
LOC: MAMMO 09:17
PROVIDERS: PCP Family Medicine; Visit Provider Family Medicine
DX: Z12.31 Encounter for screening mammogram for malignant neoplasm of breast (principal); Z80.3 Family history of malignant neoplasm of breast
CPT/HCPCS: 77063; 77067